=== PATIENT | female | born 1995 | race Caucasian/White ===

== ENCOUNTER 2021-09-07 09:48 | Outpatient (CLI) | payer OTHER, SELFPAY ==
[2021-09-07 11:01] LABS: Hematocrit 33.4 % (37.0-47.0); Hemoglobin 11.4 g/dL (12.0-15.0)
[2021-09-07 11:11] LABS: Glucose 1 Hour PP 50gm Dose 126 mg/dL
[2021-09-07 11:53] LABS: HIV 1/2 Ab P24 Ag Result Negative (Negative)
== END 2021-09-07 09:49 | disposition home or self-care (01) ==
PROVIDERS: Visit Provider Obstetrics & Gynecology
DX: Z36.89 Encounter for other specified antenatal screening (principal)
CPT/HCPCS: 36415; 82947; 85014; 85018; 85461; 86703; G0432

== ENCOUNTER 2021-09-13 12:32 | Outpatient (RCR) | payer OTHER, SELFPAY ==
[2021-09-15] MEDS: RHO(D) IMMUNE GLOBULIN 300 MCG/2 ML SYRINGE IM (10:58)
== END 2021-12-12 23:59 | disposition home or self-care (01) ==
LOC: ANHLAB 12:32
PROVIDERS: Visit Provider Obstetrics & Gynecology
DX: O36.0130 Maternal care for anti-D [Rh] antibodies, third trimester, not applicable or unspecified (principal); Z3A.00 Weeks of gestation of pregnancy not specified
CPT/HCPCS: 36415; 85461; 90384; 96372; J2790

== ENCOUNTER 2021-10-03 09:20 | Observation (INO) | payer OTHER, SELFPAY ==
[2021-10-03] VITALS (14 sets, daily range): BP systolic 97–121; BP diastolic 45–76; PULSE 94–123; TEMP 36.4; BMI 25.3
--- NOTE | 2021-10-03 10:09 | PC.NURSE ---
0940--Vernon Hernandez CNM on unit. Report re: pt. here for DFM, reactive NST, ctxns noted at 32 week gestation with known anterior placenta and cervical funneling per pt. Strip reviewed and pt's records looked up per Vernon Hernandez CNM, orders received for FFN, gentle VE, and terbutaline if needed.
[2021-10-03] MEDS: TERBUTALINE SULFATE 1 MG/ML VIAL 0.25 MG SUB-Q (10:19)
[2021-10-03 10:40] LABS: Fetal Fibronectin Negative
[2021-10-03] MEDS: BETAMETHASONE SOD PHOS/ACETATE 30 MG/5 ML VIAL 12 MG IM (11:02)
--- NOTE | 2021-10-03 11:25 | PC.NURSE ---
1035--Dr. Mathew on unit, update re: Pt's hx, strip reviewed, orders given by JOSUE Hernandez, VE, and awaiting FFN results. Orders to give betamethasone 12mg IM now and repeat in 24hr, and to call JOSUE Hernandez with FFN results.
--- NOTE | 2021-10-03 11:54 | PC.NURSE ---
1149--Report to Vernon Hernandez CNM re: FFN-, VE, meds given, and pt. continuing to contract. Orders to give nifedipine 10mg PO.
[2021-10-03] MEDS: NIFEdipine 10 MG CAPSULE PO ×2 (11:56→16:46)
--- NOTE | 2021-10-03 12:00 | LDADM ---
This patient, Marianela Paige, was admitted to Labor/Delivery/Recovery 118 on 10/03/21 at 09:20. Plans for labor, pain management and were discussed with patient. Patient/family oriented to hospital policies and general routines including ID bracelet, bed and alarms, visiting hours, pain management, procedures, bathroom and other care routines, personal items, smoking policy, room service/diet and guest tray routines, security routines, and visiting hours. Patient/Family are encouraged to report perceived risks to care and to ask questions if they do not understand what they are told or what they should do. See OBIX for further documentation.
--- NOTE | 2021-10-03 12:05 | OBADM ---
This patient, Marianela Paige, admitted to the OB room Labor/Delivery/Recovery 118 for observation. Patient/family oriented to hospital policies and general routines including ID bracelet, bed and alarms, visiting hours, pain management, procedures, bathroom and other care routines, personal items, smoking policy, room service/diet, and visiting hours. Patient/Family are encouraged to report perceived risks to care and to ask questions if they do not understand what they are told or what they should do.
--- NOTE | 2021-10-03 16:58 | PC.NURSE ---
1530--Report to Vernon Hernandez CNM re: cervix unchanged from earlier exam. Orders to keep pt. overnight with procardia Q6h prn and may have regular diet.
--- NOTE | 2021-10-03 17:01 | PC.NURSE ---
1640--Phone call to Vernon Hernandez CNM re: increased ctxns. Orders to change procardia to q4h PRN.
--- NOTE | 2021-10-03 22:50 | PC.NURSE ---
2234-Domenic SALAS on the phone,update given that pt does not feel any contractions she has. Order received to discontinue toco for the night to allow pt to sleep more comfortable and educate pt to call nurse if she starts feeling cramping or contractions.
[2021-10-04 07:30] VITALS: BP 102/62; PULSE 88; TEMP 36.5
--- NOTE | 2021-10-04 07:31 | PM.IMHP ---
H&P: HPI History of Present Illness Date/Time: 10/04/21 07:31 Chief Complaint: decreased FM Narrative: Marianela is a 26yo G1 admitted yesterday at 32.0 for decreased FM, which has since resolved. However, she was noted to have fairly consistent contractions, which she could feel, though mild, and her cervix was 2cm. At 25w she was noted to have cervical funneling incidentally on US. She received celestone #1 yesterday. FFN was neg. she received 2 doses of nifedipine and none in last 8 hours and notes no contractions this am. normal FM currently. NST reactive. Review of Systems Review of Systems: All systems reviewed & are unremarkable except as noted in HPI and below [facility] Surgical History Surgical History (Updated 12/15/20 @ 13:11 by Leslie Yarbrough CMA) History of hand surgery tendon repair Family History Family History (Updated 12/15/20 @ 13:11 by Leslie Yarbrough CMA) Father Hypertension Grandparent Cancer Social History Social History (Updated 12/15/20 @ 13:12 by Leslie Yarbrough CMA) Smoking status: Former smoker Tobacco type: cigarettes Alcohol intake: current Substance use: never Meds Home Medications and Allergies Home Medications Medication Instructions Recorded Confirmed Type vit no.95-ferrous 1 tablet PO DAILY 10/03/21 10/03/21 History fumarate 28 mg-folic acid 800 mcg tablet () Allergies Allergy/AdvReac Type Severity Reaction Status Date / Time No Known Allergies Allergy Verified 12/15/20 13:10 Vital Signs Vital Signs - 24 hr 10/03/21 10:21 10/03/21 10:30 10/03/21 10:45 Temperature Pulse Rate 94 94 106 H Blood Pressure 119/73 115/69 115/70 10/03/21 11:40 10/03/21 11:45 10/03/21 12:00 Temperature Pulse Rate 114 H 101 H 101 H Blood Pressure 114/73 103/69 114/76 10/03/21 12:15 10/03/21 12:30 10/03/21 12:45 Temperature Pulse Rate 97 121 H 110 H Blood Pressure 107/69 110/67 103/59 L 10/03/21 13:00 10/03/21 13:15 10/03/21 14:01 Temperature Pulse Rate 123 H 117 H 109 H Blood Pressure 121/70 103/63 110/63 10/03/21 17:32 10/03/21 20:10 10/04/21 07:30 Temperature 97.6 F Pulse Rate 100 112 H 88 Blood Pressure 107/65 97/45 L 102/62 Exam Const: General: no acute distress Resp: Effort & Inspection: normal respiratory effort Auscultation: clear to auscultation bilaterally Cardio: Rate: regular rate Rhythm: regular rhythm GI: GI Palp: Yes Soft to palpation Extrem: General: normal to inspection Assessment and Plan Assessment and plan (1) Decreased movement affecting management of mother, antepartum: Code(s): O36.8190 - Decreased movements, unspecified trimester, not applicable or unspecified Status: Acute (2) contractions: Code(s): O47.00 - False labor before 37 completed weeks of gestation, unspecified trimester Status: Acute Plan second celestone today FFN negative, discussed this is very reassuring no cervical change home today with precautions if contractions stay minimal
[2021-10-04] MEDS: BETAMETHASONE SOD PHOS/ACETATE 30 MG/5 ML VIAL 12 MG IM (11:06)
== END 2021-10-04 11:37 | disposition home or self-care (01) ==
LOC: ANHLDR 09:45 → ANHOBPP 13:24
PROVIDERS: Advanced Practice Midwife; Admitting Provider Obstetrics & Gynecology; Visit Provider Obstetrics & Gynecology
DX: O36.8130 Decreased fetal movements, third trimester, not applicable or unspecified (principal); O47.03 False labor before 37 completed weeks of gestation, third trimester; Z3A.32 32 weeks gestation of pregnancy
CPT/HCPCS: 82731; 96372; A9270; G0378; G0379; J0702; J3105

== ENCOUNTER 2021-11-14 19:45 | Observation (INO) | payer OTHER, SELFPAY ==
[2021-11-14 19:45] VITALS: BMI 27.1
--- NOTE | 2021-11-14 21:21 | OBADM ---
This patient, Marianela Paige, admitted to the OB room Labor/Delivery/Recovery 105 for observation. Patient/family oriented to hospital policies and general routines including ID bracelet, bed and alarms, visiting hours, pain management, procedures, bathroom and other care routines, personal items, smoking policy, room service/diet, and visiting hours. Patient/Family are encouraged to report perceived risks to care and to ask questions if they do not understand what they are told or what they should do.
--- NOTE | 2021-12-05 13:09 | PM.OBTRLD ---
OB - Triage/Final Diagnosis Visit Information Comments/Additional reasons for admission: I have assessed the risk for this patient, Marianela Paige, and determined that she would benefit from observation care. Final Diagnosis (1) Amniotic fluid leaking: Code(s): O42.90 - Premature rupture of membranes, unspecified as to length of time between rupture and onset of labor, unspecified weeks of gestation Status: Acute
== END 2021-11-14 21:35 | disposition home or self-care (01) ==
PROVIDERS: Admitting Provider Obstetrics & Gynecology; Visit Provider Obstetrics & Gynecology
DX: O42.913 Preterm premature rupture of membranes, unspecified as to length of time between rupture and onset of labor, third trimester (principal); Z3A.30 30 weeks gestation of pregnancy
CPT/HCPCS: 84112; G0378; G0379

== ENCOUNTER 2021-11-21 16:56 | Inpatient (IN) | payer OTHER, SELFPAY ==
[2021-11-21] VITALS (35 sets, daily range): BP systolic 111–154; BP diastolic 45–133; PULSE 82–130; RESP 16–17; TEMP 36.7–37.1; O2SAT 88–100; BMI 26.7
--- NOTE | 2021-11-21 16:56 | LDADM ---
This patient, Marianela Paige, was admitted to Labor/Delivery/Recovery 105 on 11/21/21 at 16:56. Plans for labor, pain management and were discussed with patient. Patient/family oriented to hospital policies and general routines including ID bracelet, bed and alarms, visiting hours, pain management, procedures, bathroom and other care routines, personal items, smoking policy, room service/diet and guest tray routines, security routines, and visiting hours. Patient/Family are encouraged to report perceived risks to care and to ask questions if they do not understand what they are told or what they should do. See OBIX for further documentation.
--- OUTSIDE RECORDS SUMMARY | 2021-11-21 20:16 | XMS_ITS | Encounter Summary ---
:1995 Author Reason for Visit OB visit Assessment and Plan 1. Routine care Discussion Note: None recorded.Patient educational handouts: No information available. Plan of Care Reminders Provider Appointments Induction 11/23/2021 5:00AM Nancy Rayo MD Lab None recorded. ? ? Referral None recorded. ? ? Procedures None recorded. ? ? Surgeries None recorded. ? ? Imaging None recorded. ? ? Medications Name Start Date ? ? ? Medications Administered None recorded. Vitals Height Weight BMI Blood Pressure 5 ft 5 in 161 lbs 26.8 kg/m2 126/81 mm[Hg] Results Lab Results None recorded. Allergies Code Code System Name Reaction Severity Onset NKDA ? ? ? Problems Name Status Onset Date Source ? Active 05/19/2021 ? RhD Negative Active 05/21/2021 ? Short Cervical Length in Active ? ? Procedures Date Name Performed by ? 10/12/2021 US, Obstetric, Follow-up [place] [address] [place] [address] ([address]) Vaccine List None recorded. Social History Tobacco Smoking Status Unknown If Ever Smoked What type of diet are you following? REGULAR What is the highest grade or level of school you have [id number] 4-0 completed or the highest degree you have received? Are you able to walk? YESWOREST Are you blind or do you have difficulty seeing? N
--- OUTSIDE RECORDS SUMMARY | 2021-11-21 20:16 | XMS_ITS | Encounter Summary ---
:1995 Author Reason for Visit OB visit Assessment and Plan 1. Threatened premature labor - not del ivered Discussion Note: None recorded.Patient educational handouts: No [...] BMI Blood Pressure 5 ft 5 in 153 lbs 25.5 kg/m2 128/80 mm[Hg] Results Lab Results None recorded. Allergies Code Code System Name Reaction Severity Onset NKDA ? ? ? Problems Name Status Onset Date Source ? Active 05/19/2021 ? RhD Negative Active 05/21/2021 ? Short Cervical Length in Active ? ? Procedures Date Name Performed by ? 10/12/2021 US, Obstetric, Follow-up [place] [address] [place] [address] (Work [address]) Vaccine List None recorded. Social History Tobacco Smoking Status Unknown If Ever Smoked What type of diet are you following? REGULAR What is the highest grade or level of school you have [id number] 4-0 completed or the highest degree you have received? Are you able to walk? YESWOREST Are you blind or do you have difficulty seeing? N
--- OUTSIDE RECORDS SUMMARY | 2021-11-21 20:16 | XMS_ITS | Encounter Summary ---
[...] BMI Blood Pressure 5 ft 5 in 152 lbs 25.3 kg/m2 107/69 mm[Hg] Results Lab Results None recorded. Allergies Code Code System Name Reaction Severity Onset NKDA ? ? ? Problems Name Status Onset Date Source ? Active 05/19/2021 ? RhD Negative Active 05/21/2021 ? Short Cervical Length in Active ? ? Procedures Date Name Performed by ? 09/07/2021 US, Obstetric, Follow-up [place] [address] [place] [address] (Work [address]) Vaccine List None recorded. Social History Tobacco Smoking Status Unknown If Ever Smoked What type of diet are you following? REGULAR What is the highest grade or level of school you have [id number] 4-0 completed or the highest degree you have received? Are you able to walk? YESWOREST Are you blind or do you have difficulty seeing? N
--- OUTSIDE RECORDS SUMMARY | 2021-11-21 20:16 | XMS_ITS | Encounter Summary ---
[...] BMI Blood Pressure 5 ft 5 in 159 lbs 26.5 kg/m2 113/74 mm[Hg] Results Lab Results None recorded. Allergies Code Code System Name Reaction Severity Onset NKDA ? ? ? Problems Name Status Onset Date Source ? Active 05/19/2021 ? RhD Negative Active 05/21/2021 ? Short Cervical Length in Active ? ? Procedures Date Name Performed by ? 10/12/2021 US, Obstetric, Follow-up [place] [address] [place] [address] (Work [address]) Vaccine List None recorded. Social History Tobacco Smoking Status Unknown If Ever Smoked What type of diet are you following? REGULAR What is the highest grade or level of school you have [id number] 4-0 completed or the highest degree you have received? Are you able to walk? YESWOREST Are you blind or do you have difficulty seeing? N
--- OUTSIDE RECORDS SUMMARY | 2021-11-21 20:16 | XMS_ITS | Encounter Summary ---
[...] BMI Blood Pressure 5 ft 5 in 163 lbs 27.1 kg/m2 122/85 mm[Hg] Results Lab Results None recorded. Allergies Code Code System Name Reaction Severity Onset NKDA ? ? ? Problems Name Status Onset Date Source ? Active 05/19/2021 ? RhD Negative Active 05/21/2021 ? Short Cervical Length in Active ? ? Procedures Date Name Performed by ? 10/12/2021 US, Obstetric, Follow-up [place] [address] [place] [address] (Work [address]) Vaccine List None recorded. Social History Tobacco Smoking Status Unknown If Ever Smoked What type of diet are you following? REGULAR Are you able to walk? YESWOREST How much tobacco do you chew? none What is your level of alcohol consumption? None Have you been to an area known to be high risk for N COV
--- OUTSIDE RECORDS SUMMARY | 2021-11-21 20:16 | XMS_ITS | Encounter Summary ---
:1995 Author Reason for Visit None recorded. Assessment and Plan 1. Large for gestation age fetus ? US, obstetric, follow-up Discussion Note: None recorded.Patient educational handouts: No information available. Plan of Care Reminders Provider Appointments Induction 11/23/2021 Nancy shell MD 5:00AM Lab None recorded. ? ? Referral None recorded. ? ? Procedures None recorded. ? ? Surgeries None recorded. ? ? Imaging US, Obstetric, Follow-up 09/07/2021 Marytony kumar Medications Name Start Date ? ? ? Medications Administered None recorded. Vitals None recorded. Results Lab Results None recorded. Allergies Code Code System Name Reaction Severity Onset NKDA ? ? ? Problems Name Status Onset Date Source ? Active 05/19/2021 ? RhD Negative Active 05/21/2021 ? Short Cervical Length in Active ? ? Procedures Date Name Performed by ? 08/17/2021 US, Obstetric, Transvaginal [place] [address] [place] [address] ([address]) 09/07/2021 US, Obstetric, Follow-up [place] [address] [place] [address] (Work [address]) Vaccine List None recorded. Social History Tobacco Smoking Status Unknown If Ever Smoked What type of diet are you following? REGULAR
--- OUTSIDE RECORDS SUMMARY | 2021-11-21 20:16 | XMS_ITS | Encounter Summary ---
:1995 Author Reason for Visit OB visit Assessment and Plan 1. Routine care 2. Short cervical length in Discussion Note: None recorded.Patient educational handouts: No [...] BMI Blood Pressure 5 ft 5 in 148 lbs 24.6 kg/m2 106/68 mm[Hg] Results Lab Results None recorded. Allergies Code Code System Name Reaction Severity Onset NKDA ? ? ? Problems Name Status Onset Date Source ? Active 05/19/2021 ? RhD Negative Active 05/21/2021 ? Short Cervical Length in Active ? ? Procedures Date Name Performed by ? 08/17/2021 , Obstetric, Transvaginal [place] [address] [place] [address] (Work [address]) 09/07/2021 , Obstetric, Follow-up [place] [address] [place] [address] (Work [address]) Vaccine List None recorded. Social History Tobacco Smoking Status Unknown If Ever Smoked
--- OUTSIDE RECORDS SUMMARY | 2021-11-21 20:16 | XMS_ITS ---
:1995 Author Care Team Providers Name Role Phone Nancy Rayo Primary Care Provider Unavailable Allergies Code Code System Name Reaction Severity Status Onset NKDA ? Medications Name Status Start Date Stop Date ? ? Active ? Not available Problems Name Status Onset Date Source ? Active 05/19/2021 ? RhD Negative Active 05/21/2021 ? Short Cervical Length in Active ? ? Procedures Date Name Performed by ? 05/19/2021 US, Obstetric, Nuchal Translucency Christopher kumar [address] [place] [address] ([address]) 07/13/2021 US, Obstetric, 2Nd or 3Rd Trimester Fatou ribeiro [address] [place] [address] (Work [address]) 07/13/2021 , Obstetric, Transvaginal [place] [address] [place] [address] ([address]) 08/17/2021 , Obstetric, Transvaginal [place] [address] [place] [address] ([address]) 09/07/2021 , Obstetric, Follow-up [place] [address] [place] [address] (Work [address]) 10/12/2021 , Obstetric, Follow-up [place]
--- OUTSIDE RECORDS SUMMARY | 2021-11-21 20:16 | XMS_ITS | Encounter Summary ---
[...] recorded. ? ? Imaging US, Obstetric, Follow-up 10/12/2021 Christopher kumar Medications Name Start Date ? ? [...] Performed by ? 10/12/2021 US, Obstetric, Follow-up [place] [address] [place] [address] ([address]) Vaccine List None recorded. Social History Tobacco Smoking Status Unknown If Ever Smoked What type of diet are you following? REGULAR What is the highest grade or level of school you have [id number] 4-0 completed or the highest degree you have received? Are you able to walk? YESWOREST Are you blind or do you have difficulty seeing? N
[2021-11-21] MEDS: LACTATED RINGERS 1,000 ML 125 ML IV CONT ×2 (21:27→22:55)
[2021-11-21] MEDS: AMPICILLIN 2 GM/NS 100 ML 2 GM/100 ML BAG IVPB (21:27)
[2021-11-21 21:40] LABS: Basophils Absolute Auto 0.1 K/mm3 (0.0-0.1); Basophils Percent Auto 0.3 % (0.2-1.2); Eosinophils Absolute Auto 0.1 K/mm3 (0-0.3); Eosinophils Percent Auto 0.3 % (0-4.4); Hematocrit 35.7 % (37.0-47.0); Hemoglobin 11.8 g/dL (12.0-15.0); Immature Granulocyte Absolute 0.14 K/mm3 (0.00-0.031); Immature Granulocyte Percent A 0.8 % (0-0.5); Lymphocytes Absolute Auto 1.96 K/mm3 (0.9-3.2); Lymphocytes Percent Auto 11.8 % (18.3-44.2); Mean Corpuscular HGB Conc 33.1 g/dl (32-36); Mean Corpuscular Hemoglobin 28.1 pg (26-34); Mean Platelet Volume 11.2 fl (7.4-10.4); Monocytes Percent Auto 6.1 % (2.6-8.5); Neutrophils Absolute Auto 13.4 K/mm3 (1.3-6.7); Neutrophils Percent Auto 80.7 % (45.5-73.1); Platelet Count Result 176 k/mm3 (150-375); Red Cell Distribution Width 12.6 % (11.5-14.5); White Blood Count 16.6 K/mm3 (4.5-10.0)
--- NOTE | 2021-11-21 22:37 | P.PNAN_ITS ---
Anes - Eval Pre Procedure Procedure: labor epidural Date/Time: 11/21/21 22:37 Surgeon: alcides Preop Diagnosis: pain during labor Pre Op Diagnosis: contractions Patient Data Age: 26 Gender: F Height: 1.65 m Weight: 73 kg Last Vital Signs Temp 37.1 C 11/21/21 20:18 Pulse 98 11/21/21 21:46 Resp 16 11/21/21 20:18 BP 135/82 11/21/21 21:46 O2 Del Method Room Air 11/21/21 21:22 Allergies Allergy/AdvReac Type Severity Reaction Status Date / Time No Known Allergies Allergy Verified 11/21/21 21:18 Home Medications Medication Instructions Recorded Confirmed Type vit no.95-ferrous 1 tablet PO DAILY 10/03/21 11/21/21 History fumarate 28 mg-folic acid 800 mcg tablet () Laboratory Tests 11/21/21 11/21/21 21:25 21:25 WBC 16.6 K/mm3 H K/mm3 (4.5-10.0) RBC 4.20 M/mm3 M/mm3 (4.2-5.4) Hgb 11.8 g/dL L g/dL (12.0-15.0) Hct 35.7 % L % (37.0-47.0) MCV 85.0 fl fl (80-100) MCH 28.1 pg pg (26-34) MCHC 33.1 g/dl g/dl (32-36) RDW 12.6 % % (11.5-14.5) Plt Count 176 k/mm3 k/mm3 (150-375) MPV 11.2 fl H fl (7.4-10.4) Immature Gran % (Auto) 0.8 % H % (0-0.5) Neut % (Auto) 80.7 % H % (45.5-73.1) Lymph % (Auto) 11.8 % L % (18.3-44.2) [place] % (Auto) 6.1 % % (2.6-8.5) Eos % (Auto) 0.3 % % (0-4.4) Baso % (Auto) 0.3 % % (0.2-1.2) Lymph # (Auto) 1.96 K/mm3 K/mm3 (0.9-3.2) [place] # (Auto) 1.0 K/mm3 H K/mm3 (0.1-0.6) Eos # (Auto) 0.1 K/mm3 K/mm3 (0-0.3) Baso # (Auto) 0.1 K/mm3 K/mm3 (0.0-0.1) Abs Immat Gran (auto) 0.14 K/mm3 H K/mm3 (0.00-0.031) Absolute Neuts (auto) 13.4 K/mm3 H K/mm3 (1.3-6.7) Absolute Nucleated RBC 0.0 K/mm3 K/mm3 (0.0-0.012) Nucleated RBC % 0.0 % % (0.0-0.2) RPR Pending Patient hx anesthesia problems: none Family hx anesthesia problems: none Results Review: All pre-operative results and documents have been reviewed as part of the pre- operative evaluation. [facility] Past Medical History Medical History (Updated 11/21/21 @ 22:38 by Lilliam Vincent CRNA) IUP (intrauterine ), incidental Surgical History Surgical History (Updated 12/15/20 @ 13:11 by Leslie Yarbrough CMA) History of hand surgery tendon repair Family History Family History Father Hypertension Grandparent Cancer Social History Social History (Updated 12/15/20 @ 13:12 by Leslie Yarbrough CMA) Smoking status: Never smoker Tobacco type: cigarettes Alcohol intake: current Substance use: never Spiritual care concerns: No Exam Day of Procedure 11/21/21 22:37
[2021-11-22] VITALS (139 sets, daily range): BP systolic 106–139; BP diastolic 64–103; PULSE 72–140; RESP 15–18; TEMP 36.4–38.1; O2SAT 94–100
[2021-11-22] MEDS: OXYTOCIN 30 UNITS/NS 500 ML 30 UNITS/500 ML BAG IV CONT
[2021-11-22] MEDS: AMPICILLIN 1 GM/NS 50 ML 1 GM/50 ML BAG IVPB ×3 (01:38→09:49)
[2021-11-22] MEDS: ONDANSETRON INJ 4 MG/2 ML VIAL IV PUSH (02:42)
--- NOTE | 2021-11-22 04:57 | PM.IMHP ---
H&P: HPI History of Present Illness Date/Time: 11/22/21 04:57 Chief Complaint: labor Narrative: Marianela is a 26yo G1 at 39.1 who presented in labor last night with ctx q 2-3 min. Also had a slow leak of fluid since yesterday. Now has epidural, 6cm, bulging forebag. complicated only by shortened cervical length incidentally found around 24w. Review of Systems Review of Systems: All systems reviewed & are unremarkable except as noted in HPI and below PMFSH Past Medical History Medical History (Updated 11/22/21 @ 04:59 by Nancy Rayo MD) IUP (intrauterine ), incidental Surgical History Surgical History (Updated 12/15/20 @ 13:11 by Leslie Yarbrough CMA) History of hand surgery tendon repair Family History Family History Father Hypertension Grandparent Cancer Social History Social History (Updated 12/15/20 @ 13:12 by Leslie Yarbrough [employer]) Smoking status: Never smoker Tobacco type: cigarettes Alcohol intake: current Substance use: never Spiritual care concerns: No Meds Home Medications and Allergies Home Medications Medication Instructions Recorded Confirmed Type vit no.95-ferrous 1 tablet PO DAILY 10/03/21 11/21/21 History fumarate 28 mg-folic acid 800 mcg tablet () Allergies Allergy/AdvReac Type Severity Reaction Status Date / Time No Known Allergies Allergy Verified 11/21/21 21:18 Vital Signs Vital Signs - 24 hr 11/21/21 21:22 11/21/21 21:34 11/21/21 21:46 Temperature Pulse Rate 98 Respiratory Rate Blood Pressure 154/133 H 135/82 Pulse Oximetry Oxygen Delivery Room Air 11/21/21 19:16 11/21/21 20:18 11/21/21 22:41 Temperature 98.6 F 98.7 F Pulse Rate 116 H Respiratory Rate 17 16 Blood Pressure 136/93 H Pulse Oximetry 100 Oxygen Delivery 11/21/21 22:46 11/21/21 22:48 11/21/21 22:51 Temperature Pulse Rate 107 H Respiratory Rate Blood Pressure 135/90 Pulse Oximetry 100 100 Oxygen Delivery 11/21/21 22:53 11/21/21 22:54 11/21/21 22:56 Temperature Pulse Rate 98 102 H 103 H Respiratory Rate Blood Pressure 133/85 126/86 132/84 Pulse Oximetry 100 Oxygen Delivery 11/21/21 22:57 11/21/21 23:00 11/21/21 23:01 Temperature 98.6 F Pulse Rate 97 101 H Respiratory Rate 17 Blood Pressure 129/66 133/77 Pulse Oximetry 99 Oxygen Delivery 11/21/21 23:04 11/21/21 23:06 11/21/21 23:09 Temperature Pulse Rate 130 H 101 H 91 Respiratory Rate Blood Pressure 118/45 L 123/79 111/76 Pulse Oximetry 98 Oxygen Delivery 11/21/21 23:11 11/21/21 23:12 11/21/21 23:15 Temperature Pulse Rate 96 87 Respiratory Rate Blood Pressure 115/72 121/77 Pulse Oximetry 100 Oxygen Delivery 11/21/21 23:16 11/21/21 23:18 11/21/21 23:21 Temperature Pulse Rate 87 86 Respiratory Rate Blood Pressure 123/87 125/81 Pulse Oximetry 98 100 Oxygen Delivery 11/21/21 23:24 11/21/21 23:26 11/21/21 23:27 Temperature Pulse Rate 87 87 Respiratory Rate Blood Pressure 128/77 128/83 Pulse Oximetry 100 Oxygen Delivery 11/21/21 23:30 11/21/21 23:31 11/21/21 23:33 Temperature Pulse Rate 88 87 Respiratory Rate Blood Pressure 128/85 127/89 Pulse Oximetry 100 Oxygen Delivery 11/21/21 23:36 11/21/21 23:39 11/21/21 23:41 Temperature Pulse Rate 92 86 Respiratory Rate Blood Pressure 127/87 130/84 Pulse Oximetry 100 100 Oxygen Delivery 11/21/21 23:42 11/21/21 23:46 11/22/21 00:00 Temperature 97.9 F Pulse Rate 86 89 Respiratory Rate Blood Pressure 128/81 132/88 Pulse Oximetry 88 L Oxygen Delivery 11/22/21 00:31 11/22/21 01:00 11/22/21 01:30 Temperature Pulse Rate 92 93 92 Respiratory Rate Blood Pressure 133/87 116/71 114/75 Pulse Oximetry Oxygen Delivery 11/21/21 21:48 0
[2021-11-22] MEDS: LACTATED RINGERS 1,000 ML 125 ML IV CONT (07:19)
[2021-11-22 07:53] LABS: Rapid Plasma Reagin Non-Reactive (NonReactive)
--- NOTE | 2021-11-22 13:29 | PM.OBPRVD ---
OB - Delivery Note Procedure Delivery date: 11/22/21 Procedure: Delivery augmentation: Rupture of Membranes Delivery monitor: External FHT and Internal Uterine Route of delivery: Laceration Description: Perineal - 2nd Degree Delivery repair: vicryl Quantitative Blood Loss (ml): 1,200 Anesthesia type: Epidural Disposition: Floor Complications: retained placenta with manual extraction at 29 minutes due to excessive bleeding. Narrative: With adequate expulsive efforts by the mother, the baby's head was delivered OA. The baby's anterior shoulder was delivered under the pubic symphysis without difficulty. The posterior shoulder and the rest of the baby delivered without difficulty. The was placed on the mothers chest and suctioned and stimulated. The cord was clamped and cut after 60 seconds. Mother and baby both stable. Baby Date of : 11/22/21 Time of : 12:51 Weeks of gestation at delivery: 39 Infant gender: Male Weight (pounds): 9 Weight (ounces): 12 presentation: vertex Placenta delivery description: Manual Removal Cord Vessel Description: 3 Vessels and Delayed Cord Clamping score one minute: 5 score five minutes: 9
[2021-11-22] MEDS: OXYTOCIN 30 UNITS/NS 500 ML 30 UNITS/500 ML BAG 125 UNITS IV CONT (13:57)
[2021-11-22] MEDS: ceFAZolin 2 GM/D5W 50 ML 2 GM/50 ML BAG IVPB (14:29)
[2021-11-22 15:09] LABS: Hematocrit 25.3 % (37.0-47.0); Hemoglobin 8.5 g/dL (12.0-15.0)
[2021-11-22] MEDS: POLYSACCHARIDE IRON COMPLEX 150 MG CAPSULE PO (16:46)
[2021-11-22] MEDS: DOCUSATE SODIUM 100 MG CAPSULE PO (16:47)
[2021-11-22] MEDS: LANOLIN (LANSINOH) 7.5 GM CREAM 1 APPLIC TOPICAL (16:47)
[2021-11-22] MEDS: IBUPROFEN 600 MG TABLET PO (17:09)
[2021-11-23 00:10] VITALS: BP 100/59; PULSE 99; RESP 18; TEMP 36.4
[2021-11-23 04:15] VITALS: BP 101/63; PULSE 89; RESP 16; TEMP 36.4
[2021-11-23 05:32] LABS: Hematocrit 24.4 % (37.0-47.0); Hemoglobin 7.9 g/dL (12.0-15.0)
--- NOTE | 2021-11-23 08:03 | PM.OBPNVD ---
OB - PN: Subj Subjective Date/time seen: 11/23/21 08:03 Patient comments: no complaints and pain well controlled baby status: nursing well [place] feeding status: exclusively breast feeding Narrative: Denies dizzines, headaches, no tachycardia. Feels well. Tolerated IV iron well yesterday. OB - PN: Obj Data Labs CBC & Chem 7: 11/23/21 04:20 Labs: Laboratory Results - last 24 hr 11/22/21 11/23/21 11/23/21 14:57 04:20 04:20 Hgb 8.5 L D 7.9 L Hct 25.3 L 24.4 L Blood Type A Negative Antibody Screen TNP Screen Negative Baby's Blood Type A pos Baby's ANJEL Positive Doses of RhIg Required 1 OB - PN A/P Plan day: 1 Plan: routine care Comments: anemia- asymptomatic. will repeat IV iron today. does not seem to need blood. doing well. circumcision done after consented. Time Spent With Patient Time: Total time spent is greater than 50% in coordination of care (as documented) at patient's floor/unit and/or counseling patient: Time with patient: less than 15 minutes Exam Narrative: NAD abdomen soft, nontender, fundus firm below the umbilicus Extremities nontender, 1+ edema
[2021-11-23] MEDS: MULTIVIT/MIN/PREN/FOL AC/IRON TABLET 1 TAB PO (08:52)
[2021-11-23] MEDS: IBUPROFEN 600 MG TABLET PO ×2 (08:53→15:59)
[2021-11-23] MEDS: POLYSACCHARIDE IRON COMPLEX 150 MG CAPSULE PO ×2 (08:53→16:00)
[2021-11-23] MEDS: DOCUSATE SODIUM 100 MG CAPSULE PO ×2 (08:55→16:00)
--- NOTE | 2021-11-23 10:24 | WPDANLDPN2 ---
Anes-Prog Note L&D Date/Time: 11/23/21 10:24 Comfortable throughout: labor and delivery Neuraxial method: epidural Epidural/Spinal procedure site: clean & non-tender Neuro status: Neuro function grossly intact. Cardiovascular status: normal Respiratory status: normal Airway patency: baseline Mental status: baseline Post-Op hydration status: normal Vital Signs: Last Vital Signs Temp 36.4 C L 11/23/21 04:15 Pulse 89 11/23/21 04:15 Resp 16 11/23/21 04:15 BP 101/63 11/23/21 04:15 Pulse Ox 100 11/22/21 16:30 O2 Del Method Room Air 11/23/21 08:56 Pain score (VAS): 2 I/O: Intake & Output 11/22/21 11/23/21 11/23/21 23:59 07:59 15:59 Intake Total 515 Balance 515 Patient feedback: Patient satisfied with anesthetic care.
[2021-11-23 12:35] VITALS: BP 111/70; PULSE 94; RESP 16; TEMP 36.2; O2SAT 100
[2021-11-23] MEDS: RHO(D) IMMUNE GLOBULIN 300 MCG/2 ML SYRINGE IM (14:18)
--- NOTE | 2021-11-23 15:05 | PC.NURSE ---
[id number] Introductions were made, then consulted with patient to assess needs related to . Mother led the conversation with her?plans to feed?her infant and the?experience so far. Resources provided for inpatient and outpatient services using a resource guide and mom/baby guide. Mother voiced understanding of information and requests assistance for this feeding. Mother works well with her infant with encouragement and education. Encouraged understanding of the benefits of skin to skin (unwrapping and placing vertically on her chest), responsive feeding and how to watch for early feeding signs, frequency of feeding on demand about every 8-12 times in 24 hours (every 2-3 hours), milk production, duration of feeding, signs of adequate intake/output and how to record on the feeding sheet. Reviewed positioning and ear, shoulder, hip alignment, supporting the breast, asymmetrical latch (off-center), and leading with the chin with a big open side gape. latched to the left breast in cross cradle position. RN suggested positioning infant closer to her body and alignment with a deeper latch as reviewed earlier. After latch optimally father of baby was given ideas of how to support mother's effective latch to keep the close to her body related to clicking heard when mother inadvertently had allowed her infant to fall away from the breast. Education given to mother of how to visualize suck/swallow ratios and listening for drinking at the breast. Infant was able to maintain latch without discomfort to mother. Nipple care reviewed with optimal latch and good positioning. Resources used to facilitate learning were used with the visual handouts and tool. Mother voiced understanding of responsive feedings, stimulating with skin to skin, hand expressed colostrum, massage touch, talking to to encourage if it has been 2 -3 hours since the start of the last , to call if does not latch or there is discomfort with . Reported to the primary RN.
[2021-11-23 21:00] VITALS: BP 110/68; PULSE 101; RESP 18; TEMP 36.6
--- NOTE | 2021-11-24 07:32 | PM.OBPNVD ---
OB - PN: Subj Subjective Date/time seen: 11/24/21 07:32 Patient comments: no complaints and pain well controlled baby status: doing well and nursing well [place] feeding status: exclusively breast feeding OB - PN: Obj Data Labs CBC & Chem 7: 11/23/21 04:20 Labs: Laboratory Results - last 24 hr 11/23/21 04:20 Blood Type A Negative Antibody Screen TNP Screen Negative Baby's Blood Type A pos Baby's ANJEL Positive Doses of RhIg Required 1 OB - PN A/P Plan day: 2 Plan: routine care and discharge home Time Spent With Patient Time: Total time spent is greater than 50% in coordination of care (as documented) at patient's floor/unit and/or counseling patient: Time with patient: less than 15 minutes Exam Narrative: NAD abdomen soft, nontender, fundus firm below the umbilicus Extremities nontender, 1+ edema
--- NOTE | 2021-11-24 07:34 | PM.OBDSVD ---
DS: Admitting Diagnosis Discharge Date 11/24/21 Admitting Diagnosis term , labor DS: Discharge Diagnosis Discharge Diagnosis (1) , delivered: Code(s): O80 - Encounter for full-term uncomplicated delivery Status: Acute OB - DS: Summary Hospital Course Hospital Course: Marianela was admitted in labor and had an uncomplicated vaginal delivery. She had a hemorrhage and received IV iron but otherwise had an uncomplicated course. OB Procedures : Ultrasound OB Procedures Intrapartum: Spontaneous Vag Delivery OB Procedures: : None Peripartum Data Infant Delivery Method: Natural Vaginal Laceration Description: Perineal - 2nd Degree Status at Discharge Functional status at discharge: independent ambulation Time Spent with Patient Time attestation: Total time spent providing and/or coordinating discharge services: Exam Narrative: NAD abdomen soft, appropriately tender Ext non tender, 1+ edema DS: Data Data Completed and Pending Labs on day of discharge: Labs from last 24 hours 11/23/21 04:20 Blood Type A Negative Antibody Screen TNP Screen Negative Baby's Blood Type A pos Baby's ANJEL Positive Doses of RhIg Required 1 Discharge Plan Discharge Attending physician on discharge: Nancy Rayo Discharging Clinician: Nancy Rayo Anticipated Discharge Date/Time: 11/24/21 07:33 Patient Disposition: Home, Self-Care Activity: pelvic rest Diet: regular Patient Instructions: Antibiotic Form Stand Alone Forms: General Discharge Information Follow-up/Referrals: Nancy Rayo MD [Physician] - 4 Weeks Discharge Medications: Continued PNV cmb#95-ferrous fumarate-FA [] 28 mg iron- 800 mcg Tablet 1 tablet PO DAILY Date of admission: 11/21/21 16:56 Primary Care Provider: UNKNOWN,DOCTOR Admitting Provider: Nancy Rayo Attending physician on admission: Nancy Rayo Condition: Stable
[2021-11-24 07:50] VITALS: BP 111/64; PULSE 98; RESP 18; TEMP 36.8; O2SAT 100
[2021-11-24] MEDS: IBUPROFEN 600 MG TABLET PO (09:32)
[2021-11-24] MEDS: DOCUSATE SODIUM 100 MG CAPSULE PO (09:33)
[2021-11-24] MEDS: MULTIVIT/MIN/PREN/FOL AC/IRON TABLET 1 TAB PO (09:33)
[2021-11-24] MEDS: POLYSACCHARIDE IRON COMPLEX 150 MG CAPSULE PO (09:33)
[2021-11-24 10:46] LABS: HIV 1/2 Ab P24 Ag Result Negative (Negative)
--- NOTE | 2021-11-24 17:33 | PC.NURSE ---
[id number] Introductions were made, then consulted with patient to assess needs related to . Mother led the conversation with her?plans to feed?her infant and the?experience so far. Resources provided for inpatient and outpatient services using a resource guide and mom/baby guide. Mother voiced understanding of information and requests assistance. Mother led the conversation with her experience and plan to feed her so far and Mother latches to her right breast. RN encouraged mother to bring her 's body closer to hers with chin buried in the breast with an off-centered latch. Mother states the latch feels better. Reminded parents to use good handwashing technique to prevent infection. Mother is feeding appropriately for growth of and understands stimulating to eat if needed. has had appropriate feedings in the last 24 hours meets the outcomes for weight, output and jaundice at this time. Mother states she is confident to continue effectively her at home or when to call for assistance and denies any additional assistance or education at this time. Reinforced understanding of milk production, transition of milk, signs of adequate intake, prevention/relief of engorgement, responsive after visualizing feeding cues, the different methods of stimulating infant to breastfeed 2-3 hours after the start of the last feeding, community resources, medication information reviewed per [facility] and when to call a provider using the resource of the mom and baby guide/[facility] website. Mother voiced understanding of the education shared. Reported to the primary RN.
--- NOTE | 2021-11-24 20:06 | PC.NURSE ---
1200 Patient viewed the discharge video Mother & Baby Care, The First Two Weeks . Patient was given the opportunity and encouraged to ask questions. Patient verbalized understanding of information shared and has been given the mother/baby guide for home reference.
[2021-11-25 09:06] VITALS: BP 118/82; PULSE 93; RESP 20; TEMP 37; O2SAT 99
== END 2021-11-24 14:13 | disposition home or self-care (01) | DRG 806 ==
LOC: ANHLDR 20:15 → ANHOB2 11-22 16:42
PROVIDERS: Admitting Provider Obstetrics & Gynecology; Visit Provider Obstetrics & Gynecology
DX: O42.92 Full-term premature rupture of membranes, unspecified as to length of time between rupture and onset of labor (principal); O72.2 Delayed and secondary postpartum hemorrhage; Z37.0 Single live birth; O70.1 Second degree perineal laceration during delivery; Z3A.39 39 weeks gestation of pregnancy
CPT/HCPCS: 36415; 84112; 85014; 85018; 85025; 85461; 86592; 86703; 86850; 86880; 86900; 86901; 90384; A9270; G0432; J0290; J0690; J1756; J2405; J2590; J2790; J2795; J7120

== ENCOUNTER 2022-12-29 10:03 | Outpatient (RCR) | payer BC, SELFPAY ==
[2022-12-29] MEDS: RHO(D) IMMUNE GLOBULIN 300 MCG/2 ML SYRINGE IM (15:13)
== END 2023-03-29 23:59 | disposition home or self-care (01) ==
LOC: ANHLAB 10:03
PROVIDERS: Visit Provider Obstetrics & Gynecology
DX: Z29.13 Encounter for prophylactic Rho(D) immune globulin (principal); O36.0130 Maternal care for anti-D [Rh] antibodies, third trimester, not applicable or unspecified; Z3A.00 Weeks of gestation of pregnancy not specified
CPT/HCPCS: 36415; 84702; 85461; 86850; 86900; 86901; 90384; 96372; J2790

== ENCOUNTER 2022-12-30 12:35 | Outpatient (CLI) | payer BC, SELFPAY | END 2022-12-30 12:36 | disposition home or self-care (01) | LOC: ANHLAB 12:36 | PROVIDERS: Visit Provider Obstetrics & Gynecology | DX: O20.0 Threatened abortion (principal); Z3A.00 Weeks of gestation of pregnancy not specified | CPT/HCPCS: 36415; 84702 ==

== ENCOUNTER 2023-02-28 12:25 | Outpatient (CLI) | payer BC, SELFPAY ==
[2023-02-28 13:31] LABS: Beta HCG Quantitative 313.14 mIU/ML
== END 2023-02-28 12:26 | disposition home or self-care (01) ==
PROVIDERS: Visit Provider Advanced Practice Midwife
DX: N91.2 Amenorrhea, unspecified (principal)
CPT/HCPCS: 36415; 84702

== ENCOUNTER 2023-03-02 11:34 | Outpatient (CLI) | payer BC, SELFPAY | END 2023-03-02 11:35 | disposition home or self-care (01) | LOC: ANHLAB 11:36 | PROVIDERS: Visit Provider Advanced Practice Midwife | DX: N91.2 Amenorrhea, unspecified (principal) | CPT/HCPCS: 36415; 84702 ==

== ENCOUNTER 2023-04-18 14:36 | Outpatient (RCR) | payer BC, SELFPAY ==
[2023-04-18] MEDS: RHO(D) IMMUNE GLOBULIN 300 MCG/2 ML SYRINGE IM (18:27)
== END 2023-07-17 23:59 | disposition home or self-care (01) ==
LOC: ANHLAB 14:36
PROVIDERS: Visit Provider Advanced Practice Midwife
DX: Z29.13 Encounter for prophylactic Rho(D) immune globulin (principal); O36.0130 Maternal care for anti-D [Rh] antibodies, third trimester, not applicable or unspecified; Z3A.00 Weeks of gestation of pregnancy not specified
CPT/HCPCS: 36415; 85461; 86850; 86880; 86900; 86901; 86902; 90384; 96372; J2790

== ENCOUNTER 2023-08-22 09:30 | Outpatient (RCR) | payer BC, SELFPAY ==
[2023-08-22 11:01] LABS: Hematocrit 32.8 % (37.0-47.0)
[2023-08-22 11:15] LABS: Glucose 1 Hour PP 50gm Dose 146 mg/dL
[2023-08-22 11:55] LABS: HIV 1/2 Ab P24 Ag Result Negative (Negative)
[2023-08-23] MEDS: RHO(D) IMMUNE GLOBULIN 300 MCG/2 ML SYRINGE IM (10:20)
== END 2023-11-20 23:59 | disposition home or self-care (01) ==
LOC: ANHLAB 09:30
PROVIDERS: Visit Provider Advanced Practice Midwife
DX: Z11.4 Encounter for screening for human immunodeficiency virus [HIV] (principal); Z11.3 Encounter for screening for infections with a predominantly sexual mode of transmission; Z29.13 Encounter for prophylactic Rho(D) immune globulin; O36.0190 Maternal care for anti-D [Rh] antibodies, unspecified trimester, not applicable or unspecified; Z3A.00 Weeks of gestation of pregnancy not specified
CPT/HCPCS: 36415; 82947; 85014; 85018; 85461; 86703; 86850; 86900; 86901; 90384; 96372; G0432; J2790

== ENCOUNTER 2023-10-27 00:01 | Inpatient (IN) | payer BC, SELFPAY ==
[2023-10-27] VITALS (105 sets, daily range): BP systolic 64–142; BP diastolic 44–121; PULSE 25–201; RESP 16–18; TEMP 36.3–37.2; O2SAT 76–100; BMI 28.3
--- NOTE | 2023-10-27 00:34 | LDADM ---
This patient, Marianela Pierson, was admitted to Labor/Delivery/Recovery 103 on 10/27/23 at 00:01. Plans for labor, pain management and were discussed with patient. Patient/family oriented to hospital policies and general routines including ID bracelet, bed and alarms, visiting hours, pain management, procedures, bathroom and other care routines, personal items, smoking policy, room service/diet and guest tray routines, security routines, and visiting hours. Patient/Family are encouraged to report perceived risks to care and to ask questions if they do not understand what they are told or what they should do. See [facility] for further documentation.
[2023-10-27 00:57] LABS: Basophils Percent Auto 0.3 % (0.2-1.2); Eosinophils Absolute Auto 0.1 K/mm3 (0-0.3); Eosinophils Percent Auto 1.2 % (0-4.4); Hematocrit 32.5 % (37.0-47.0); Hemoglobin 10.5 g/dL (12.0-15.0); Immature Granulocyte Absolute 0.11 K/mm3 (0.00-0.031); Immature Granulocyte Percent A 0.9 % (0-0.5); Lymphocytes Absolute Auto 2.11 K/mm3 (0.9-3.2); Lymphocytes Percent Auto 17.9 % (18.3-44.2); Mean Corpuscular HGB Conc 32.3 g/dl (32-36); Mean Corpuscular Hemoglobin 25.1 pg (26-34); Mean Corpuscular Volume 77.8 fl (80-100); Mean Platelet Volume 10.1 fl (7.4-10.4); Monocytes Absolute Auto 0.8 K/mm3 (0.1-0.6); Monocytes Percent Auto 6.8 % (2.6-8.5); Neutrophils Absolute Auto 8.6 K/mm3 (1.3-6.7); Neutrophils Percent Auto 72.9 % (45.5-73.1); Platelet Count Result 172 k/mm3 (150-375); Red Blood Count 4.18 M/mm3 (4.2-5.4); Red Cell Distribution Width 13.2 % (11.5-14.5); White Blood Count 11.8 K/mm3 (4.5-10.0)
[2023-10-27 01:05] LABS: Rapid Plasma Reagin Non-Reactive (NonReactive)
[2023-10-27] MEDS: LACTATED RINGERS 1,000 ML 125 ML IV CONT ×2 (01:18→05:51)
[2023-10-27] MEDS: OXYTOCIN 30 UNITS/NS 500 ML 30 UNITS/500 ML BAG IV CONT (01:18)
[2023-10-27 01:38] LABS: HIV 1/2 Ab P24 Ag Result Negative (Negative)
--- NOTE | 2023-10-27 05:51 | WPDANESEPP ---
Anes - Eval Pre Procedure Procedure: Labor Epidural Date/Time: 10/27/23 05:51 Surgeon: deanna Preop Diagnosis: labor pain Pre Op Diagnosis: IOL Patient Data Age: 28 Gender: F Height: 1.65 m Weight: 77.2 kg Last Vital Signs Temp 36.8 C 10/27/23 00:30 Pulse 91 10/27/23 05:45 BP 107/75 10/27/23 05:45 O2 Del Method Room Air 10/27/23 00:23 Allergies Allergy/AdvReac Type Severity Reaction Status Date / Time No Known Allergies Allergy Verified 11/21/21 21:18 Home Medications Medication Instructions Recorded Confirmed Type vit no.95-ferrous 1 tablet PO DAILY 10/03/21 10/27/23 History fumarate 28 mg-folic acid 800 mcg tablet () Laboratory Tests 10/27/23 00:10 WBC 11.8 H K/mm3 (4.5-10.0) RBC 4.18 L M/mm3 (4.2-5.4) Hgb 10.5 L g/dL (12.0-15.0) Hct 32.5 L % (37.0-47.0) MCV 77.8 L fl (80-100) MCH 25.1 L pg (26-34) MCHC 32.3 g/dl (32-36) RDW 13.2 % (11.5-14.5) Plt Count 172 k/mm3 (150-375) MPV 10.1 fl (7.4-10.4) Immature Gran % (Auto) 0.9 H % (0-0.5) Neut % (Auto) 72.9 % (45.5-73.1) Lymph % (Auto) 17.9 L % (18.3-44.2) [place] % (Auto) 6.8 % (2.6-8.5) Eos % (Auto) 1.2 % (0-4.4) Baso % (Auto) 0.3 % (0.2-1.2) Lymph # (Auto) 2.11 K/mm3 (0.9-3.2) [place] # (Auto) 0.8 H K/mm3 (0.1-0.6) Eos # (Auto) 0.1 K/mm3 (0-0.3) Baso # (Auto) 0.0 K/mm3 (0.0-0.1) Abs Immat Gran (auto) 0.11 H K/mm3 (0.00-0.031) Absolute Neuts (auto) 8.6 H K/mm3 (1.3-6.7) Absolute Nucleated RBC 0.000 K/mm3 (0.0-0.012) Nucleated RBC % 0.0 % (0.0-0.2) RPR Non-reactive (NonReactive) HIV 1&2 Ab/P24 Ag 4thGn Negative (Negative) Blood Type A Negative Antibody Screen Positive Antibody Identification Passive Due to RH Imm Glob Antigen Identification TNP ANJEL, IgG Interpret Negative ANJEL, Poly Interpret TNP ANJEL, Complement Interp Negative : gestational age (NICK 11/03/23, ) Patient hx anesthesia problems: none Family hx anesthesia problems: none Results Review: All pre-operative results and documents have been reviewed as part of the pre-operative evaluation. [facility] Past Medical History Medical History IUP (intrauterine ), incidental Surgical History Surgical History History of hand surgery tendon repair Family History Family History Father Hypertension Grandparent Cancer Social History Social History Smoking status: Never smoker Tobacco type: cigarettes Second hand tobacco smoke exposure: No Alcohol intake: current Substance use: never Do You Feel Safe in your Home?: Yes Lack of Transportation: No Lack of Food: Never True Current Housing: I Have Housing Concerned About Future Housing: No Difficulty Paying Gas/Electric Bills: No Difficulty Paying for Meds: No Currently Unemployed: No Education: High School Diploma/GED Difficulty w/ Childcare or Family Care: No Spiritual care concerns: No Exam Day of Procedure 10/27/23 05:51 Patient weight: normal Heart: regular rate and rhythm Lungs: normal air movement Airway: Mallampati scale class II Neurological: alert and oriented
--- NOTE | 2023-10-27 07:22 | WPDOBADMIT ---
Obstetrics - Admit Note Admission Note: record reviewed. No pertinent additions to the history and/or any subsequent changes in the physical findings that are not consistent with the expected course of the were found. Additions to the history and/or subsequent changes in the physical findings follow. Admit for IOL, SVE /-1 AROM moderate amount of clear odorless fluid
[2023-10-27] MEDS: PHENYLEPHRINE 1,000 MCG/10 ML SYRINGE 100 MCG IV PUSH (08:50)
[2023-10-27] MEDS: miSOPROStol 200 MCG TABLET 1000 MCG (09:01)
--- NOTE | 2023-10-27 09:08 | P.PCNOB_ITS ---
OB - Vaginal Delivery Note Procedure Delivery date: 10/27/23 Induction method: AROM and Per Pitocin Protocol Delivery monitor: External FHT Route of delivery: Episiotomy description: None Laceration Description: None Specimen: No Quantitative Blood Loss (ml): 100 Anesthesia type: Epidural Disposition: Floor Complications: No immediate complications [place] Baby Date of : 10/27/23 Time of : 08:57 Gestational Age by Date: 39 gender: Male presentation: vertex position: Right Occiput Anterior Placenta delivery description: Spontaneous Cord Vessel Description: 3 Vessels, Nuchal Cord (x1) and Loose Narrative: mother and baby skin to skin in stable condition
[2023-10-27] MEDS: OXYTOCIN 30 UNITS/NS 500 ML 30 UNITS/500 ML BAG 125 UNITS IV CONT (09:38)
--- NOTE | 2023-10-27 13:12 | PC.NURSE ---
Introductions were made, communication board updated. Mother expresses that she feels confident nursing infant and feels that feedings are going well. This RN asked mother to call for next feeding if she has any questions or would like this RN to confirm that infants latch is appropriate. Mother denies any additional questions at this time.
[2023-10-27] MEDS: IBUPROFEN 600 MG TABLET PO (23:23)
[2023-10-28 05:00] LABS: Hematocrit 29.6 % (37.0-47.0); Hemoglobin 9.6 g/dL (12.0-15.0)
[2023-10-28 07:30] VITALS: BP 101/59; PULSE 80; RESP 16; TEMP 36.6; O2SAT 99
--- NOTE | 2023-10-28 08:32 | PM.OBPNVD ---
OB - PN: Subj Subjective Date/time seen: 10/28/23 08:32 Patient comments: no complaints, pain well controlled, incisional pain, tolerating diet and flatus present OB - PN: Obj Data Labs 10/28/23 03:21 Labs: Laboratory Results - last 24 hr 10/28/23 03:21 Hgb 9.6 L Hct 29.6 L OB - PN A/P Plan day: 1 Plan: routine care Comments: No problems, routine care Time Spent With Patient Time: Total time spent is greater than 50% in coordination of care (as documented) at patient's floor/unit and/or counseling patient: Exam Const: General: comfortable, no acute distress and alert Resp: Effort & Inspection: normal respiratory effort Auscultation: no crackles, no rales and no rhonchi Cardio: Rate: regular rate Heart sounds: no click, no murmurs and no rubs GI: Inspection: non-distended GI Palp: No Tenderness to palpation present (GI) Auscultation: normal bowel sounds Other: Incision - CDI Extrem: General: normal to inspection, no pedal edema and no calf tenderness
--- NOTE | 2023-10-28 08:33 | PM.OBDSVD ---
DS: Admitting Diagnosis Discharge Date October 28, 2023 Admitting Diagnosis term DS: Discharge Diagnosis Discharge Diagnosis (1) Post term , delivered: Code(s): O48.0 - Post-term Status: Acute OB - DS: Summary OB Procedures : None OB Procedures Intrapartum: Spontaneous Vag Delivery OB Procedures: : None Peripartum Data Laceration Description: None Episiotomy description: None Time Spent with Patient Time attestation: Total time spent providing and/or coordinating discharge services: DS: Data Data Completed and Pending Labs on day of discharge: Labs from last 24 hours 10/28/23 03:21 Hgb 9.6 L Hct 29.6 L Discharge Plan Discharge Discharging Clinician: Dayton Mathew Patient Disposition: Home, Self-Care Activity: pelvic rest Diet: regular Patient Instructions: Antibiotic Form Stand Alone Forms: General Discharge Information Follow-up/Referrals: Dayton Mathew MD [Physician] - Discharge Medications: Continued PNV cmb#95-ferrous fumarate-FA [] 28 mg iron- 800 mcg Tablet 1 tablet PO DAILY Date of admission: 10/27/23 00:01 Primary Care Provider: Ratna Hernandez Admitting Provider: Dayton Mathew Attending physician on admission: Dayton Mathew Condition: Stable
[2023-10-28] MEDS: DOCUSATE SODIUM 100 MG CAPSULE PO (08:44)
[2023-10-28] MEDS: POLYSACCHARIDE IRON COMPLEX 150 MG CAPSULE PO (08:44)
[2023-10-28] MEDS: MULTIVIT/MIN/PREN/FOL AC/IRON TABLET 1 TAB PO (08:44)
--- NOTE | 2023-10-28 10:26 | WPDANLDPN2 ---
Anes-Prog Note L&D Date/Time: 10/28/23 10:26 Comfortable throughout: labor and delivery Neuraxial method: epidural Epidural/Spinal procedure site: clean & non-tender Neuro status: Neuro function grossly intact. Cardiovascular status: normal Respiratory status: normal Airway patency: baseline Mental status: baseline Post-Op hydration status: normal Vital Signs: Last Vital Signs Temp 97.8 F 10/28/23 07:30 Pulse 80 10/28/23 07:30 Resp 16 10/28/23 07:30 BP 101/59 L 10/28/23 07:30 Pulse Ox 99 10/28/23 07:30 O2 Del Method Room Air 10/28/23 07:30 Pain score (VAS): 0 Post-procedural complaints: none Patient feedback: Patient satisfied with anesthetic care.
--- NOTE | 2023-10-28 12:30 | PC.NURSE ---
Consulted with mother concerning needs and she shared her ability to independently latch infant optimally without pain. Mother is feeding appropriately for growth of and understands stimulating to eat if needed. Infant has had appropriate feedings in the last 24 hours meets the outcomes for weight, output, blood sugar and jaundice at this time. Reinforced understanding of milk production, transition of milk, signs of adequate intake, transition of stool, prevention/relief of engorgement, plugged ducts, mastitis, responsive watching for feeding cues, the different methods of stimulating to breastfeed 1-3 hours after the start of the last feeding, community resources, and when to call a provider using the resource of the feeding sheet along with the mom and baby guide. Mother voiced understanding of the information shared, is confident to continue effectively her infant at home, when to call for assistance, denies any additional assistance or education at this time. Reported to the Primary RN.
[2023-10-30 11:16] VITALS: BP 106/71; PULSE 71; RESP 18; TEMP 36.7; O2SAT 98
== END 2023-10-28 14:50 | disposition home or self-care (01) | DRG 807 ==
LOC: ANHLDR 00:10 → ANHOB2 14:13
PROVIDERS: Admitting Provider Obstetrics & Gynecology; PCP Advanced Practice Midwife; Visit Provider Obstetrics & Gynecology
DX: O62.3 Precipitate labor (principal); Z37.0 Single live birth; Z3A.39 39 weeks gestation of pregnancy; O69.81X0 Labor and delivery complicated by cord around neck, without compression, not applicable or unspecified
CPT/HCPCS: 36415; 85014; 85018; 85025; 86592; 86703; 86850; 86880; 86900; 86901; A9270; G0432; J2371; J2590; J2795; J7120

== ENCOUNTER 2024-10-15 09:29 | Outpatient (RCR) | payer BC, SELFPAY ==
[2024-10-15 11:54] LABS: Hematocrit 30.1 % (37.0-47.0); Hemoglobin 9.7 g/dL (12.0-15.0)
[2024-10-15 12:13] LABS: Glucose 1 Hour PP 50gm Dose 134 mg/dL
[2024-10-15 12:49] LABS: HIV 1/2 Ab P24 Ag Result Negative (Negative)
[2024-10-17] MEDS: RHO(D) IMMUNE GLOBULIN 300 MCG/2 ML SYRINGE IM (19:29)
== END 2025-01-13 23:59 | disposition home or self-care (01) ==
LOC: ANHLAB 09:29
PROVIDERS: Visit Provider Advanced Practice Midwife
DX: Z11.4 Encounter for screening for human immunodeficiency virus [HIV] (principal); Z11.3 Encounter for screening for infections with a predominantly sexual mode of transmission; Z29.13 Encounter for prophylactic Rho(D) immune globulin; O36.0130 Maternal care for anti-D [Rh] antibodies, third trimester, not applicable or unspecified; Z3A.00 Weeks of gestation of pregnancy not specified
CPT/HCPCS: 36415; 82947; 85014; 85018; 85461; 86703; 86850; 86900; 86901; 90384; 96372; G0432; J2790

== ENCOUNTER 2024-12-14 18:06 | Outpatient (CLI) | payer BC, SELFPAY ==
[2024-12-14] VITALS (8 sets, daily range): BP systolic 99–120; BP diastolic 66–74; PULSE 95–134; TEMP 37.2–37.6
[2024-12-14] MEDS: ONDANSETRON HCL ODT 4 MG TABLET (18:35)
== END 2024-12-14 20:35 | disposition home or self-care (01) ==
LOC: ANHOBOP 18:11 → ANHLDR 19:17
PROVIDERS: Visit Provider Obstetrics & Gynecology
DX: Z34.90 Encounter for supervision of normal pregnancy, unspecified, unspecified trimester (principal); Z3A.00 Weeks of gestation of pregnancy not specified
CPT/HCPCS: 84112; 99199; A9270

== ENCOUNTER 2024-12-15 10:46 | Inpatient (IN) | payer BC, SELFPAY ==
[2024-12-15] VITALS (86 sets, daily range): BP systolic 84–127; BP diastolic 46–83; PULSE 25–164; RESP 16–18; TEMP 36.5–37.3; O2SAT 82–100; BMI 23.5
--- OUTSIDE RECORDS SUMMARY | 2024-12-15 11:15 | XMS_ITS | Data Portability ---
Author Organization [facility] Address [address] [place] [place] [address] Assessment Encounter Date Assessment Date Assessment LastModified by Organization Details LastModified Time 11/06/2024 11/06/2024 Patient is __32_weeks . Discussed plan. Not available 11/06/2024 12:24:14 11/20/2024 11/20/2024 Patient is __34_weeks . Discussed plan. [email or web address] Not available 11/20/2024 15:25:25 12/04/2024 12/04/2024 Patient is _36__weeks . Discussed plan. Not available 12/04/2024 10:39:17 12/11/2024 12/11/2024 Patient is __37_weeks . Discussed plan. Not available 12/11/2024 11:42:21 Plan of Treatment Reminders Order Date Submit Date Provider Last Modified By Organization Details Last Modified Time Details Appointments U/S OB GROWTH 2024 08:30A M ULTRASOUND Not available Not available Not available OB ROUTINE 2024 09:15A M Ratna Hernandez CNM Not available Not available Not available INDUCTI ON 2024 05:00A Elieser Hernandez CNM Not available Not available Not available Lab None recorde d. Referral None recorde d. Procedures None recorde d. Surgeries None recorde d. Imaging US, obstetr ic, follow- up 2024 [id number] [email or web address] [address], [address], [place], [address], 11/21/2024 18:25:28 Medication Orders None recorde d. Patient TargetsNo targets recorded. Patient InstructionsNo instructions recorded. Reason for Referral None Reported. Results Created Date Observation Date Name Description Value Unit Range Abnormal Flag Note LastModifiedBy Organization Detail LastModifiedTime 10/24/1910/23/2024 RETIC ULOCY TE COUNT reticulocyte count percent 3.02 % 0.50-2 .50 high Not Available [facility] (Lab) [address], [place], [address], 10/24/2024 07:37:39 10/24/1910/23/2024 RETIC ULOCY TE COUNT reticulocyte count absolute 112.00 10'3/ uL no define d refere nce range Refer ence range s for nonbi nary/ inter sex or unspe cifie d gende r patie nts have not been estab lishe d. Pleas e [facility] for range s estab lishe d for cisge nder patie nts and evalu ate in the clini alejandro marcy xt of the indiv idual patie nt: https ://lianna ahn book. nm.or g/gen derx Not Available [facility] (Lab) [address], [place], [address], 10/24/2024 07:37:39 10/24/1910/23/2024 CECILIA TIN / IRON / TRANS CECILIA N / TIBC iron 42 ug/dL 40-170 Not Available [facility] (Lab) [address] [place], [address], 10/24/2024 07:37:40 10/24/1910/23/2024 CECILIA TIN / IRON / TRANS CECILIA N / TIBC transferrin 405 mg/dL 200-36 0 high Not Available [facility] (Lab) [address] [place], [address], 10/24/2024 07:37:40 10/24/19 25 10/23/2024 CECILIA TIN / IRON / TRANS CECILIA N / TIBC ferritin 6.4 NG/mL 8.0-25 2.0 low Not Available [facility] (Lab) [address] [place], [address], 10/24/2024 07:37:40 10/24/19 25 10/23/2024 CECILIA TIN / IRON / TRANS CECILIA N / TIBC TIBC 567 ug/dL 250-45 0 high Not Available [facility] (Lab) [address] [place], [address], 10/24/2024 07:37:40 10/24/19 25 10/23/2024 CECILIA TIN / IRON / TRANS CECILIA N / TIBC iron saturation 7 % 20-55 low Not Available [facility] (Lab) [address] [place], [address], 10/24/2024 07:37:40 10/24/19 25 10/23/2024 VITAM IN B12 / FOLAT E PANEL vitamin B12 133 pg/mL 180-91 4 low Marge l Range : 180-9 14 pg/mL . Indet ermin ate Range : 145-1 80 pg/mL . Defic ient Range : <=145 pg/mL . Not Available [facility] (Lab) [address] [facility], [place], [address], 10/24/2024 07:37:40 10/24/1910/23/2024 VITAM IN B12 / FOLAT E PANEL folate, serum 13.0 NG/mL 6.0-20 .0 Not Available [facility] (Lab) [address] [place], [address], 10/24/2024 07:37:40 12/05/19 25 12/04/2024 CULTU RE: GROUP B STREP SCREE N, REFLE X SUSCE PTIBI LITY result report SEE RESULT S BELOW Test: Cultu re: Group B Strep , Refle x Susce ptibi lity ([facility]/ [facility] ) Speci men Sourc e: Vagin a/Rec luma Speci men Type: Vagin al/Re ctal Speci men Date: 2024 0918 Resul t Date: 12/07 1405 Resul t Statu s: Final resul t Abnor mal: No Resul ting Lab: [facility] [address] [facility] [address] Tel: CULTU RE ----- ----- ----- --- No Group B strep isola patrice at 2 days (da ctive broth enhan cemen t) Not Available [facility] (Lab) [address] [facility], [place], [address], 12/07/2024 15:09:02 10/24/19 25 10/23/2024 US, obste tric, follo w-up No observ ation record ed. [email or web address] [address], [place], [address], 10/23/2024 13:06:22 10/24/19 25 10/23/2024 US, obste tric, follo w-up No observ ation record ed. [email or web address] [address], [place], [address], 10/25/2024 11:06:25 11/21/19 25 11/20/2024 US, obste tric, follo w-up No observ ation record ed. [email or web address] [address], [place], [address], 11/22/2024 07:08:29 11/21/19 25 11/20/2024 US, obste tric, follo w-up No observ ation record ed. [email or web address] [address], [place], [address], 11/20/2024 18:35:58 Result Notes None recorded. Problems Name Problem SNOMED Code Status Onset Date Resolution Date Notes Provider Name and Address Organization Details Recorded Time Low-lyin g placenta 141521835 Completed 1.8cm Nancy Rayo, MD [address], [place], [address], [place] [facility] 2 10:54:31 Short cervical length in pregnanc y 295462822 Completed with franca porter 25w, incident ally found - Wash U [facility] 08/19/21 - Just PTL precauti ons r/t [place] Renita martinez null, [facility] 2 17:51:47 Prophyla ctic immunoth erapy Completed A-; rhogam received 04/18/23 & 08/23/23 Nieves Ann null, [facility] 4 19:45:09 Past pregnanc y history of postpart um hemorrha ge 056808856 Completed Nieves garcia, [facility] 4 19:45:09 Pregnanc y 02985221 Completed 202112/23/2021 Nieves Ann null, [facility] 5 10:30:38 RhD negative 347310795 Active 2021 Renita martinez null, [facility] 2 17:51:47 RhD negative 537554223 Completed 2021 Renita martinez null, [facility] 2 17:51:47 Pregnanc y 62670892 Completed 202311/03/2023 Nieves Ann null, [facility] 5 10:30:38 Pregnanc y 71399414 Active 2024 Nieves Ann null, [facility] 5 10:30:38 Bleeding 480122131 Active 2024 postpart um after first delivery Ratna Hernandez CNM [address], [place], [address], [facility] 5 09:36:25 Venous de la paz 500344234 Active 2024 Rose garcia, [facility] 5 10:22:06 Placenta previa 67446153 Active 2024 resolved 08/14/24 Ratna Hernandez CNM [address], [place], [address], [facility] 5 12:26:09 Iron deficien cy anemia 10003210 Active 2024 HGB 9.7 Draw anemia panel 10/23 IV iron infusion s - faxed order 10/25 - Insuranc e covers 50% of infusion s - pt decline scheduli ng yet - pending financia l assistan ce per SP [facility] if needed Rose Darryl radha, [facility] 5 09:45:50 Problem Notes None recorded. Procedures Surgical History Date Name Laterality Status Provider Name and Address Organization Details Recorded Time 05/22/2024 Date of Last Pap Smear completed Nieves Ann [facility] 05/22/2024 11:40:52 Imaging Results None recorded. Procedure Notes None recorded. Medical Equipment None Reported. Allergies No known drug allergies Medications Name Sig Start Date Stop Date Status Note LastModified by Organization Details LastModified Time dicloxacilli n 500 mg capsule Take 1 capsule twice a day by oral route for 10 days. 05/22 completed Not Available Not Available Not Available azithromycin 250 mg tablet TAKE 2 TABLETS (500 MG) BY ORAL ROUTE ONCE DAILY FOR 1 DAY THEN 1 TABLET (250 MG) BY ORAL ROUTE ONCE DAILY FOR 4 DAYS 11/20 completed Not Available Not Available Not Available metocloprami de 10 mg tablet TAKE 1 TABLET BY MOUTH FOUR TIMES DAILY 12/12 completed Not Available Not Available Not Available iron 1 daily active Not Available Not Avail able Not Available active Not Available Not Avai lable Not Available Vitals Date Recorded Body height Body mass index (BMI) Body weight Systolic And Diastolic Provider Name and Address Organization Details Last Updated DateTime 11/06/2024 165.1 cm 24.1 kg/m2 89445.89 g 97/61 mm[Hg] [facility] 11/06/2024 12:09:24 Date Recorded Body height Body mass index (BMI) Body weight Systolic And Diastolic Provider Name and Address Organization Details Last Updated DateTime 11/20/2024 165.1 cm 24.3 kg/m2 08614.49 g 106/64 mm[Hg] [facility] 11/20/2024 15:07:35 Date Recorded Body height Body mass index (BMI) Body weight Systolic And Diastolic Provider Name and Address Organization Details Last Updated DateTime 12/04/2024 165.1 cm 24.5 kg/m2 61740.08 g 108/71 mm[Hg] [facility] 12/04/2024 09:35:57 Date Recorded Body height Body mass index (BMI) Body weight Systolic And Diastolic Provider Name and Address Organization Details Last Updated DateTime 12/11/2024 165.1 cm 24.8 kg/m2 34151.26 g 115/74 mm[Hg] [facility] 12/11/2024 10:33:02 Social History Question Answer Notes LastModified by Organizat ion Details LastModified Time Tobacco Smoking Status [facility] 04/26/2023 13:31:17 Do You Have An Advance Directive? No [email or web address] Information n ot available 04/20/2021 Are You Blind Or Do You Have Difficulty Seeing? No [email or web address] Information n ot available 04/20/2021 What Is Your Level Of Caffeine Consumption? Occasional [email or web address] Information not available 04/20/2021 How Much Tobacco Do You Chew? None [email or web address] Information not available 04/20/2021 In The 14 Days Before Symptom Onset, Have You Had Close Contact With A Laboratory-confirm ed COVID-19 While That Case Was Ill? No Information n ot available 04/20/2021 In The 14 Days Before Symptom Onset, Have You Had Close Contact With A Person Who Is Under Investigation For COVID-19 While That Person Was Ill? No [email or web address] Information not available 04/20/2021 Have You Been To An Area Known To Be High Risk For COVID-19? No [email or web address] Information not available 04/20/2021 Are You Deaf Or Do You Have Serious Difficulty Hearing? No Information not available 04/20/2021 What Type Of Diet Are You Following? REGULAR [email or web address] Information n ot available 04/20/2021 What Is The Highest Grade Or Level Of School You Have Completed Or The Highest Degree You Have Received? [id number] [email or web address] Information not available 04/20/2021 Are There Any Guns Present In Your Home? No [email or web address] Information not available 04/20/2021 Do You Use Protection During Sex? No [email or web address] Information not available 04/20/2021 Do You Use Your Seat Belt Or Car Seat Routinely? Yes [email or web address] Information not available 04/20/2021 Are You Sexually Active? Yes Information not available 10/09/2024 Do You Have Smoke And Carbon Monoxide Detectors In Your Home? Yes [email or web address] Information not available 04/20/2021 How Much Tobacco Do You Smoke? No [email or web address] Information not available 04/20/2021 Do You Use Sunscreen Routinely? Yes [email or web address] Information not available 04/20/2021 Has Tobacco Cessation Counseling Been Provided? No [email or web address] Information not available 10/09/2024 Have You Used IV Drugs? No [email or web address] Information not available 04/20/2021 Do You Have Difficulty Walking Or Climbing Stairs? No [email or web address] Information not available 04/26/2023 Sex: Female Functional Status Question Answer Note LastModified by Organizat ion Details LastModified Time Do you use any illicit or recreational drugs? No [email or web address] Information not available 04/20/2021 Do you or have you ever used any other forms of tobacco or nicotine? No [email or web address] Information not available 04/26/2023 What is your level of alcohol consumption? None [email or web address] Information not available 04/20/2021 Are you currently employed? Yes [email or web address] Information not available 10/09/2024 Are you able to walk independently without assistance or assistive devices? YESWOREST [email or web address] Information not available 04/20/2021 Are you able to care for yourself independently? 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 No [email or web address] Information not available 04/26/2023 What is your exercise level? Occasional [email or web address] Information not available 04/20/2021 Mental Status Question Answer Note LastModified by Organization D etails LastModified Time Do you feel stressed (tense, restless, nervous, or anxious, or unable to sleep at night)? [id number] [email or web address] Information not available 04/26/2023 Family History Relationship Description Onset Age of this Age Resolved Age Notes LastModified by Organization Details LastModified Time Paternal Grandmother Malignant neoplasm of breast 70 [email or web address] Not available 2024 12:35:39 Paternal Grandmother Malignant neoplasm of breast Not available 2024 12:35:39 Maternal Grandfather Diabetes mellitus [email or web address] Not available 06/19 10:17:57 Medical History Condition Response Allergies (Food, seasonal, environmental ) N Other Y Drug/Latex Allergies/Reactions N Breast Cancer N Blood Transfusion N Dermatologic Disorders N Lung Disease N Defects or Inherited Disease N Breast Problem N Gestational Diabetes N Hematologic disorders N Anesthesia Complications N History of STI N Deep Vein Thrombosis N Polycystic ovary syndrome N Anxiety Disorder N Autoimmune disease N Arthritis N Infertility N Polyps N Acid Reflux (GERD) N History of abnormal pap N Cancer N Stroke N Varicosities N Neurologic/Epilepsy N Endometriosis N High Cholesterol N Fibromyalgia N Headaches N Kidney Disease N Heart Problems N Thyroid Problems N Kidney or Bladder Problems N GI Problems N Eating Disorder N Anemia N Art (IVF or FET) N Psychiatric Illness N Ovarian Cancer N Diabetes N Pulmonary (TB, Asthma) N Hepatitis/Liver Disease N No Past Medical History Y Eczema N Urinary Tract Infection N Abuse/Domestic Violence N Asthma N Trauma/Violence N Depression/ depression N Heart Disease N Pre-Eclampsia N Hypertension N Osteoporosis N Thrombophilias N Gynecological History Statement/Question Response Abnormal Pap N Date of Last Mammogram Date of LMP 03/14/2024 On BCP's at Conception? N N Was last menstrual period normal Y STIs/STDs N HPV Vaccine N Duration of Flow (days) 5 Current Control Method Are cycles usually normal Y Sexually Active? Y None Menses Monthly Y Date of DEXA bone scan Age of first menstrual cycle 15 Date of Last Pap Smear 05/22/2024 Sexual Problems? N Desired Control Method None LMP Approximate N Obstetrics History GPAL:G 4 P 2 0 1 2 Type Value Full Term 2 Spontaneous 1 Living 2 Total 4 Past Encounters Encounter ID Performer Location Encounter Start Date Encounter Closed Date Diagnosis/Indication Diagnosis SNOMED-CT Code Diagnosis ICD10 Code Diagnosis IMO Codes Diagnosis Note [id number] Caro Butler CNM [address] [address] 04/20/2021 11:53:44 04/21/2021 17:09:42 test positive 621486504 Z32.01 Risk factors addressed: Tobacco Cessation, Safe Sexual Practices, environmen beata, work hazards, travel restrictio ns, seat belt use.Eat a health well balanced diet, avoid alcohol, tobacco, and street drugs.Enga ge in daily low impact exercise, avoid temperatur e extremes, and cat, rodent, and bird feces.Avoi d travel to areas where zika virus is a concern.Of fered cf/sma/nip t. Is considerin g testing. Handouts given and discussed with patient.Ch ildbirth classes recommende d.New OB sheet given.If previous , counseling .Pt verbalizes that she understand s the importance of above instructio ns.All questions were answered.P atient reminded to have annual well woman examinatio n and address [facility] [id number] Dayton Mathew MD [address],[place] [address] 04/20/2021 11:53:22 04/20/2021 12:44:34 [id number] Nancy Rayo MD [address],[facility] [place] [address] 05/19/2021 09:30:52 05/19/2021 10:00:44 screening 107349064 Z36.82 [id number] MD Latanya Lopez [address],[place] [address] 05/19/2021 09:31:18 05/19/2021 15:15:06 Routine care 486071532 Z34.91 [id number] MD Latanya Lopez [address],[place] [address] 06/15/2021 10:57:02 06/15/2021 12:04:30 Routine care 382696186 Z34.91 [id number] MD Latanya Lopez [address],[place] [address] 07/13/2021 12:20:54 07/14/2021 15:55:16 Routine care 022079502 Z34.91 Low-lying placenta 09651 2007 O44.42 [id number] MD Fatou [place] [address],[place] [address] 07/13/2021 11:29:10 07/13/2021 12:57:46 screening 418678496 Z36.3 [id number] MD Latanya Lopez [address],[place] [address] 08/10/2021 11:08:30 08/10/2021 11:36:54 Low-lying placenta 711485537 O44.42 Routine an tenatal care 105641296 Z34.91 [id number] MD Latanya Lopez [address],[place] [address] 08/17/2021 10:50:54 08/17/2021 12:04:13 Low-lying placenta 299691536 O44.40 Z3A.25 [id number] MD Latanya Lopez [address],[place] [address] 08/17/2021 11:56:49 08/17/2021 14:13:05 Short cervical length in 853080204 O26.879 [id number] MD Latanya Lopez [address],[place] [address] 09/07/2021 09:23:14 09/07/2021 10:44:47 Large for gestation age fetus 341153453 O36.63X0 [id number] MD Latanya Lopez [address],[place] [address] 09/07/2021 09:23:49 09/10/2021 15:08:17 Routine care 853751855 Z34.91 Short cerv ical length in 428930455 O26.879 [id number] MD Latanya Lopez [address],[place] [address] 09/28/2021 10:45:35 09/28/2021 11:54:19 Routine care 130901906 Z34.91 [id number] MD Latanya Lopez [address],[place] [address] 10/12/2021 09:57:12 10/12/2021 12:31:44 Large for gestation age fetus 232399735 O36.63X0 Z3A.33 [id number] MD Latanya Lopez [address],[place] [address] 10/12/2021 09:57:28 10/12/2021 11:32:38 Threatened premature labor - not delivered 421358758 O47.9 [id number] MD Latanya Lopez [address],[place] [address] 10/26/2021 10:44:45 10/27/2021 09:30:04 Routine care 678920669 Z34.91 [id number] MD Latanya Lopez [address],[place] [address] 11/03/2021 10:52:58 11/10/2021 15:21:55 Routine care 170083065 Z34.91 [id number] MD Latanya Lopez [address],[place] [address] 11/10/2021 11:59:03 11/10/2021 15:53:03 Routine care 770255964 Z34.91 [id number] MD Latanya Lopez [address],[place] [address] 11/17/2021 11:52:56 11/20/2021 13:01:29 Routine care 037683264 Z34.91 [id number] Nancy Rayo MD [facility] [address],[place] [address] 12/21/2021 11:09:40 12/21/2021 15:09:47 care 584207390 Z39.2 [id number] Ratna Hernandez [facility] [address],[place] [address] 03/22/2023 14:26:18 03/22/2023 15:47:10 Nausea 865300736 R11.0 Amenorrhea 36967014 N91. 2 [id number] Dayton Mathew MD [facility] [address],[place] [address] 03/22/2023 14:29:08 03/22/2023 15:15:56 screening 787826301 Z36.87 Z3A.01 [id number] Dayton Mathew MD [facility] [address],[place] [address] 04/18/2023 14:50:05 04/18/2023 15:38:17 Threatened miscarriage 66975643 O20.0 Z3A.11 [id number] Dayton Mathew MD [facility] [address],[place] [address] 04/26/2023 11:52:40 04/26/2023 12:40:39 screening 605539075 Z36.82 Z3A.12 [id number] [facility] [address],[place] [address] 04/26/2023 11:53:24 04/26/2023 13:44:48 Gestation period, 12 weeks 78788469 Z3A.12 Venereal d isease screening 344881679 Z11.3 [id number] ANGELINA REN MD [facility] [address],[place] [address] 05/24/2023 12:18:23 05/24/2023 13:03:56 Routine care 213575093 Z34.82 [id number] Dayton Mathew MD [facility] [address],[place] [address] 06/21/2023 11:47:40 06/21/2023 13:34:05 screening for malformation 289690780 Z36.3 Z3A.20 [id number] [facility] [address],[place] [address] 06/21/2023 11:49:41 06/21/2023 13:53:11 Routine care 653824100 Z34.92 [id number] Dayton Mathew MD [facility] [address],[place] [address] 07/19/2023 09:25:31 07/19/2023 10:26:08 condition affecting obstetrical care of mother 667254599 O35.03X0 Z3A.24 [id number] 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 [address],[place] [address] 08/23/2023 09:58:56 08/23/2023 11:06:20 Ratna Hernandez CNM [facility] [address],[place] [address] 09/06/2023 10:04:34 09/06/2023 10:41:37 Routine care 899925735 Z34.92 [id number] Ratna Hernandez CNM [facility] [address],[place] [address] 09/20/2023 10:34:42 09/20/2023 11:37:48 Routine care 735478077 Z34.92 [id number] Dayton Mathew MD [facility] [address],[place] [address] 10/04/2023 10:53:55 10/04/2023 11:34:27 Uterine size for dates discrepancy 794491014 O26.843 Z3A.35 [id number] Ratna Hernandez CNM [facility] [address],[place] [address] 10/04/2023 10:54:36 10/04/2023 11:52:27 [id number] Ratna Hernandez CNM [facility] [address],[place] [address] 10/11/2023 09:40:04 10/11/2023 10:15:07 Routine care 364132463 Z34.92 [id number] Dayton Mathew MD [facility] [address],[place] [address] 10/11/2023 10:03:03 10/11/2023 10:48:50 tachycardia 464709642 O36.8399 [id number] Ratna Hernandez CNM [facility] [address],[place] [address] 10/18/2023 11:26:09 10/18/2023 12:04:40 Routine care 447911946 Z34.92 [id number] Ratna Hernandez CNM [facility] [address],[place] [address] 10/25/2023 09:39:22 10/25/2023 10:16:11 Routine care 538132914 Z34.92 [id number] Ratna Hernandez CNM [facility] [address],[place] [address] 12/13/2023 09:45:15 12/13/2023 10:26:34 care 179550554 Z39.2 normal visit f/u 6 month wwe [id number] Dayton Mathew MD [facility] [address],[place] [address] 05/22/2024 09:57:03 05/22/2024 10:31:26 Uterine size for dates discrepancy 070385973 O26.843 Z3A.08 [id number] [facility] [address],[place] [address] 05/22/2024 09:58:37 05/22/2024 12:11:04 Gynecologic examination 49436392 Z01.419 pap collectedp nv dailyplan 12 week new ob [place] [id number] Dayton Mathew MD [facility] [address],[place] [address] 06/19/2024 09:27:35 06/19/2024 10:08:55 screening 419987942 Z36.82 Z3A.12 130399 [id number] [facility] [address],[place] [address] 06/19/2024 09:28:16 06/21/2024 10:36:56 Gestation period, 12 weeks 07528090 Z3A.12 [id number] s barnes of fetus 50209175 Z34.90 [id number] Datyon Mathew MD [facility] [address],[place] [address] 07/17/2024 13:44:30 07/17/2024 14:47:23 Low-lying placenta 449374107 O44.40 O36.8910 Z3A.16 13628762 [id number] Ratna Hernandez CNM [facility] [address],[place] [address] 07/17/2024 13:45:47 07/17/2024 15:04:38 Gestation period, 16 weeks 37587036 Z3A.16 8315650 [id number] Dayton Mathew MD [facility] [address],[place] [address] 08/14/2024 10:26:02 08/14/2024 11:57:33 Ultrasound scan - obstetric 557211974 Z36.3 Z3A.20 79361 [id number] Ratna Hernandez [facility] [address],[place] [address] 08/14/2024 10:28:49 08/14/2024 14:02:56 Gestation period, 20 weeks 01058016 Z3A.20 9190535 [id number] Ratna Hernandez [facility] [address],[place] [address] 09/11/2024 10:08:12 09/11/2024 10:44:28 Gestation period, 24 weeks 427037203 Z3A.24 6513929 [id number] Dayton Mathew MD [facility] [address],[place], [place] [address] 09/25/2024 11:53:00 09/25/2024 12:44:14 Placental condition affecting management of mother [id number] O43.92 Z3A.26 [id number] [facility] [address],[place] [address] 10/09/2024 10:05:31 10/09/2024 10:51:11 Gestation period, 28 weeks [id number] Z3A.28 [id number] Dayton Mathew MD [facility] [address],[place] [address] 10/23/2024 11:55:32 10/23/2024 12:31:54 Anomaly of placenta 04877327 O43.103 Z3A.30 [id number] [facility] [address],[place] [address] 10/23/2024 12:12:09 10/23/2024 13:23:37 Gestation period, 30 weeks 13820743 Z3A.30 [id number] Ratna Hernandez [facility] [address],[place] [address] 11/06/2024 12:00:18 11/06/2024 12:25:39 Gestation period, 32 weeks 7367152 Z3A.32 [id number] Dayton Mathew MD [facility] [address],[place] [address] 1 11/20/2024 14:24:49 11/20/2024 15:11:35 Past history of delivery of macrosomal infant [id number] 9102 O09.299 Z3A.34 [id number] Ratna Hernandez [facility] [address],[place] [address] 11/20/2024 14:26:27 11/20/2024 15:26:27 Gestation period, 34 weeks 64700157 Z3A.34 [id number] Ratna Hernandez [place] [address],[place] [address] 12/04/2024 09:29:32 12/04/2024 10:50:49 Gestation period, 36 weeks 44275646 Z3A.36 [id number] Ratna Hernandez [facility] [address],[place] [address] 1 12/11/2024 10:27:11 12/11/2024 11:47:20 Gestation period, 37 weeks [id number] Z3A.37 [id number] Health Concerns Section Related Observation LastModified by Organization Detai ls LastModified Time None Recorded Concern Status LastModified by Organization Details LastModified Time None Recorded Advance Directives Directive N: Payers Insurance Date Sequence Insurance Name Policy Number Policy [place] Covered Member ID [place] Member ID Guarantor Name 06/21/2023 1 ROJAS (PPO) [id number] Bri Paige [id number] Marianela Pierson 12/04/2024 PAYMENT PLAN Marianela Pierson 10/04/2023 1 ROJAS (PPO) [id number] Bri Paige [id number] Marianela Pierson 12/15/2024 1 [place] [id number] Marianela Pierson [id number] Marianela Pierson 03/21/2023 1 CIG[employer] [id number] Bri Paige [id number] Marianela Pierson 12/06/2024 PAYMENT PLAN Marianela Pierson 12/06/2024 PAYMENT PLAN Marianela Pierson 07/19/2023 1 *SELF PAY* Geetha Pierson Notes Date Note Type Note Provider Name and Address Organization Details Recorded Time 11/06/2024 text/html Generic HPI TemplateReported by Patient Ratna Hernandez CNM [address], [place], [address], [facility] 11/06/2024 12:24:31 11/20/2024 text/html Generic HPI TemplateReported by Patient Ratna Hernandez CNM [address], [place], [address], [facility] 11/20/2024 15:25:46 12/04/2024 text/html Generic HPI TemplateReported by Patient Ratna Hernandez CNM [address], [place], [address], [facility] 12/04/2024 10:39:39 12/11/2024 text/html Generic HPI TemplateReported by Patient Ratna Hernandez CNM [address], [place], [address], [facility] 12/11/2024 11:42:50 OBGyn Episode Ob Episode Information Episode Created Date Number of Fetuses Patient Bloodtype Patient rh Status Prepregnancy Weight lbs Domestic Partner Domestic Partner Phone Father Name Plant Security Guard Status 05/20/19 22 1 A Negative 127 CLOSED Fetus Data First Name Last Name Admitted to NICU Weight (g) Sex Living Outcome Pediatric Complications Fetus ID Race Codes Race Delivery Type Johnie 4422.52 2 M true Full Term term mecon [id number] Vaginal Delivery Problems Problem Notes Rayo pt Problem Name Start Date End Date Resolution Snomed Code Not e Short cervical length in [id number] with fun neling 25w, incidentally found - Wash U MFM 08/19/21 - Just PTL precautions r/t GA RhD negative 05/21/2021 [id number] Arnaud Calculation Initial Arnaud Date Initial Exam Date Initial Exam Provider Initial Ultrasound Date Last Menstrual Period Date Ultra Sound Weeks Gestation 11/28/2021 05/19/2021 04/20/2021 02/21/2021 8 Eighteen To Twenty Week Arnaud Update Ultra Sound Date Fundal Height At Umbil Quickening Date Ultra Sound Latest Weeks Gestation Final Arnaud Confirmed By Final Arnaud Confirmed Date Final Arnaud Date Ultra Sound Latest Days Gestation 0 [email or web address] 05/19/2021 11/29/19 0 Pre-prakash Flowsheet Flowsheet Date 05/19/2021 Dennison Score Blood Edema Fundus Height Fundus Units Glucose Ketones Leukocytes Nitrite Labor Signs Protein Cervic Dilation Cervic Effacement Cervic Station neg none none trace Type Weight in lbs Pre/Post Dialysis Refused Weight 123.535200827346 BP Diastolic BP Location Tested BP Systolic BP Type 75 109 Fetus Heart Rate Present A 165 Fetus Movement A No Comments Marianela is a 26y oG1 at 12.3 f or care. Her history is noncontributory. She is having some nause, but improving lately. She has not had flu or COVID vaccines, discussed and encouraged. Labs and NIPt today. Flowsheet Date 06/15/2021 Dennison Score Blood Edema Fundus Height Fundus Units Glucose Ketones Leukocytes Nitrite Labor Signs Protein Cervic Dilation Cervic Effacement Cervic Station neg none none trace Type Weight in lbs Pre/Post Dialysis Refused Weight 127.085649324956 BP Diastolic BP Location Tested BP Systolic BP Type 72 110 Fetus Heart Rate Present A 160 Fetus Movement A No Comments Feeling much better. NO FM y et. Declines COVID vaccine. Anatomy US next visit. Flowsheet Date 07/13/2021 Dennison Score Blood Edema Fundus Height Fundus Units Glucose Ketones Leukocytes Nitrite Labor Signs Protein Cervic Dilation Cervic Effacement Cervic Station Type Weight in lbs Pre/Post Dialysis Refused BP Diastolic BP Location Tested BP Systolic BP Type Fetus Heart Rate Present Fetus Movement Comments Flowsheet Date 07/13/2021 Dennison Score Blood Edema Fundus Height Fundus Units Glucose Ketones Leukocytes Nitrite Labor Signs Protein Cervic Dilation Cervic Effacement Cervic Station neg none none trace Type Weight in lbs Pre/Post Dialysis Refused Weight 135.80096219149 BP Diastolic BP Location Tested BP Systolic BP Type 67 104 Fetus Heart Rate Present A 145 Fetus Movement A Yes Comments Doing great, no concerns. US today anatomy complete and wnl, placenta low lying at 1.8cm. Precautions given. Repeat US next visit. Discussed RH neg and Rhogam. Flowsheet Date 08/10/2021 Dennison Score Blood Edema Fundus Height Fundus Units Glucose Ketones Leukocytes Nitrite Labor Signs Protein Cervic Dilation Cervic Effacement Cervic Station neg none 23 none trace Type Weight in lbs Pre/Post Dialysis Refused Weight 142.201829802739 BP Diastolic BP Location Tested BP Systolic BP Type 65 102 Fetus Heart Rate Present A 150 Fetus Movement A Yes Comments Feeling much better, some FM . US for LL placenta next week. Rhogam orders given. No bleeding. Flowsheet Date 08/17/2021 Dennison Score Blood Edema Fundus Height Fundus Units Glucose Ketones Leukocytes Nitrite Labor Signs Protein Cervic Dilation Cervic Effacement Cervic Station Type Weight in lbs Pre/Post Dialysis Refused BP Diastolic BP Location Tested BP Systolic BP Type Fetus Heart Rate Present Fetus Movement Comments Flowsheet Date 08/17/2021 Dennison Score Blood Edema Fundus Height Fundus Units Glucose Ketones Leukocytes Nitrite Labor Signs Protein Cervic Dilation Cervic Effacement Cervic Station Type Weight in lbs Pre/Post Dialysis Refused Weight 141.192571093955 BP Diastolic BP Location Tested BP Systolic BP Type 70 105 Fetus Heart Rate Present Fetus Movement Comments Had US only today. While doi edmar transvag US for follow up low lying placenta, incidentally noted to have cervical funneling. Nonfunneled part of cervix 2cm. Pt denies and bleeding, leaking, contractions, or pressure. Last week she had some lower abdominal tightening once daily. Cervix digitally closed. Precautions given, no strenuous activity, will get MFM recs.Growth 57% and LLP resolved. Flowsheet Date 09/07/2021 Dennison Score Blood Edema Fundus Height Fundus Units Glucose Ketones Leukocytes Nitrite Labor Signs Protein Cervic Dilation Cervic Effacement Cervic Station Type Weight in lbs Pre/Post Dialysis Refused BP Diastolic BP Location Tested BP Systolic BP Type Fetus Heart Rate Present Fetus Movement Comments Flowsheet Date 09/07/2021 Dennison Score Blood Edema Fundus Height Fundus Units Glucose Ketones Leukocytes Nitrite Labor Signs Protein Cervic Dilation Cervic Effacement Cervic Station neg none 31 none trace Type Weight in lbs Pre/Post Dialysis Refused Weight 148.161939259548 BP Diastolic BP Location Tested BP Systolic BP Type 68 106 Fetus Heart Rate Present A 150 Fetus Movement A Yes Comments Doing well so far. US today LGA at 90%, will monitor. Doing Rhogam and GCT at today. Discussed and encouraged Tdap. Saw MFM for funneling cervix, denies ctx or bleeding. Will follow clinically. Repeat growth 4 weeks. Flowsheet Date 09/28/2021 Dennison Score Blood Edema Fundus Height Fundus Units Glucose Ketones Leukocytes Nitrite Labor Signs Protein Cervic Dilation Cervic Effacement Cervic Station neg none 30 none trace Type Weight in lbs Pre/Post Dialysis Refused Weight 152.859036030762 BP Diastolic BP Location Tested BP Systolic BP Type 69 107 Fetus Heart Rate Present A 145 Fetus Movement A Yes Comments Doing well. Got Rhogam. Will do Tdap. Discussed classes. Growth US next visit. Flowsheet Date 10/12/2021 Dennison Score Blood Edema Fundus Height Fundus Units Glucose Ketones Leukocytes Nitrite Labor Signs Protein Cervic Dilation Cervic Effacement Cervic Station Type Weight in lbs Pre/Post Dialysis Refused BP Diastolic BP Location Tested BP Systolic BP Type Fetus Heart Rate Present Fetus Movement Comments Flowsheet Date 10/12/2021 Dennison Score Blood Edema Fundus Height Fundus Units Glucose Ketones Leukocytes Nitrite Labor Signs Protein Cervic Dilation Cervic Effacement Cervic Station neg none 33 none trace Type Weight in lbs Pre/Post Dialysis Refused Weight 153.976972690176 BP Diastolic BP Location Tested BP Systolic BP Type 80 128 Fetus Heart Rate Present A 125 Fetus Movement A Yes Comments Was in hospital for contract ions, got steroids, resolved. Now only 1 per hour or so. Getting Tdap this week. Will do GBS in 2 weeks. US today EFW 82%, normal fluid. Flowsheet Date 10/26/2021 Dennison Score Blood Edema Fundus Height Fundus Units Glucose Ketones Leukocytes Nitrite Labor Signs Protein Cervic Dilation Cervic Effacement Cervic Station neg none 36 none trace 3cm 80% -2 Type Weight in lbs Pre/Post Dialysis Refused Weight 159.129817811201 BP Diastolic BP Location Tested BP Systolic BP Type 74 113 Fetus Heart Rate Present A 160 Fetus Movement A Yes Comments Doing fine. Irregular contra ctions. Tdap is done. GBS done and discussed today. Cervix very favorable, labor precautions given. Suspect may labor in the next couple weeks. Flowsheet Date 11/03/2021 Dennison Score Blood Edema Fundus Height Fundus Units Glucose Ketones Leukocytes Nitrite Labor Signs Protein Cervic Dilation Cervic Effacement Cervic Station neg none 36 none trace 4cm 80% -2 Type Weight in lbs Pre/Post Dialysis Refused Weight 161.644515310914 BP Diastolic BP Location Tested BP Systolic BP Type 81 126 Fetus Heart Rate Present A 130 Fetus Movement A Yes Comments Doing ok, irregular contract ions. GBS neg. Precautions given. FU weekly. Flowsheet Date 11/10/2021 Dennison Score Blood Edema Fundus Height Fundus Units Glucose Ketones Leukocytes Nitrite Labor Signs Protein Cervic Dilation Cervic Effacement Cervic Station neg trace 37 none trace 4cm 80% -2 Type Weight in lbs Pre/Post Dialysis Refused Weight 163.814990988928 BP Diastolic BP Location Tested BP Systolic BP Type 85 122 Fetus Heart Rate Present A 155 Fetus Movement A Yes Comments Doing fine, good FM, some ct x. would like IOL on if doesn't labor before then. Precautions given. Flowsheet Date 11/17/2021 Dennison Score Blood Edema Fundus Height Fundus Units Glucose Ketones Leukocytes Nitrite Labor Signs Protein Cervic Dilation Cervic Effacement Cervic Station neg none 37 none trace 5cm 80% Type Weight in lbs Pre/Post Dialysis Refused Weight 163.208321126583 BP Diastolic BP Location Tested BP Systolic BP Type 90 138 90 140 88 132 Fetus Heart Rate Present Fetus Movement A Yes Comments Doing ok. Had PALMA yesterday, none today. Irregular contractions. IOL monday. Precautions given. Great FM. Flowsheet Date 12/21/2021 Dennison Score Blood Edema Fundus Height Fundus Units Glucose Ketones Leukocytes Nitrite Labor Signs Protein Cervic Dilation Cervic Effacement Cervic Station Type Weight in lbs Pre/Post Dialysis Refused Weight 147.255316014605 BP Diastolic BP Location Tested BP Systolic BP Type 79 112 Fetus Heart Rate Present Fetus Movement Comments Menstrual History Last Menstrual Date Menses Monthly On Bcp Conception Prior Menses Frequency Hcg Plus Date Menarche Onset Age 1202/21/2021 Genetic Screening And Infection History Question Response Note Mental Retardation/Autism false Patient's Age Will Be 35 Years Or Older At Estim ated Date of Delivery false Thalassemia (Sao Tomean, Luxembourgish, Mediterranean, Or Background): MCV < 80 false Neural Tube Defect (Meningomyelocele, Spina Bifi da, Or Anencephaly) false Congenital Heart Defect false Down Syndrome false Benjie-Sachs (eg, Jehovah'S Witness, Cajun, Salvadorean-Wilkinson) f alse Lexi Disease false Sickle Cell Disease Or Trait () false Hemophilia Or Other Blood Disorders false Muscular Dystrophy false Cystic Fibrosis false Bob's Chorea false Intellectual Disability/Autism false If Yes, Was Person Tested For Fragile X? false Other Inherited Genetic Or Chromosomal Disorder false Maternal Metabolic Disorder (eg, Type 1 Diabetes , PKU) false Patient Or Baby's Father Had A Child With Defects Not Listed Above false Recurrent Loss, Or A Stillbirth false Medications (including Suppl ements, Vitamins, Herbs, OTC Drugs), Illicit/Recreational Drugs, Alcohol false If Yes, Agent(s) And Strength/Dosage false Any Other Genetic History false Live With Someone With TB Or Exposed To TB false Patient Or Partner Has History Of Genital Herpes false Rash Or Viral Illness Since Last Menstrual Perio d false History Of STD, Gonorrhea, Chlamydia, HPV, Syphi lis false Other Infection History false History of HIV false History of Hepatitis false Prior GBS-infected child false Hemoglobinopathy Or Carrier false Other Structural Defect false Recent Travel History Outside of Country false Delivery Information Delivery Date Delivery Type Labor Anesthesia Weeks Gestation Incision Type Labor Labor Length Hrs Delivered By Post Complications Tubal Sterilization Discharge Date Comments [facility] idural 39.1 false Nancy Rayo MD EBL 1,200, Prolonged ROM Discharge Information Feeding Method Contraceptive Method Maternal HG B and HCT Levels Ob Episode Information Episode Created Date Number of Fetuses Patient Bloodtype Patient rh Status Prepregnancy Weight lbs Domestic Partner Domestic Partner Phone Father Name Plant Security Guard Status 01/24/20 23 1 CLOSED Fetus Data First Name Last Name Admitted to NICU Weight (g) Sex Living Outcome Pediatric Complications Fetus ID Race Codes Race Delivery Type , Spontane ous [id number] Arnaud Calculation Initial Arnaud Date Initial Exam Date Initial Exam Provider Initial Ultrasound Date Last Menstrual Period Date Ultra Sound Weeks Gestation 0 Eighteen To Twenty Week Arnaud Update Ultra Sound Date Fundal Height At Umbil Quickening Date Ultra Sound Latest Weeks Gestation Final Arnaud Confirmed By Final Arnaud Confirmed Date Final Arnaud Date Ultra Sound Latest Days Gestation 0 0 Menstrual History Last Menstrual Date Menses Monthly On Bcp Conception Prior Menses Frequency Hcg Plus Date Menarche Onset Age Delivery Information Delivery Date Delivery Type Labor Anesthesia Weeks Gestation Incision Type Labor Labor Length Hrs Delivered By Post Complications Tubal Sterilization Discharge Date Comments 3 Discharge Information Feeding Method Contraceptive Method Maternal HG B and HCT Levels Ob Episode Information Episode Created Date Number of Fetuses Patient Bloodtype Patient rh Status Prepregnancy Weight lbs Domestic Partner Domestic Partner Phone Father Name Plant Security Guard Status 06/20/19 25 1 A Negative 128 William Hayen OPEN Fetus Data First Name Last Name Admitted to NICU Weight (g) Sex Living Outcome Pediatric Complications Fetus ID Race Codes Race Delivery Type [id number] Problems Problem Notes hx lGA x 2blood type A negat tabitha rhogam at 28 weeksSCH Problem Name Start Date End Date Resolution Snomed Code Not e Venous de la paz 06/24/2024 [id number] Bleeding 06/21/2024 [id number] postpartu m after first delivery Placenta previa 07/17/2024 [id number] res olved 08/14/24 Iron deficiency anemia 10/16/2024 [id number] HGB 9.7 Draw an emia panel 10/23IV iron infusions - faxed order 10/25 - Insurance covers 50% of infusions - pt decline scheduling yet - pending financial assistanceper inpatient hospital if needed Arnaud Calculation Initial Arnaud Date Initial Exam Date Initial Exam Provider Initial Ultrasound Date Last Menstrual Period Date Ultra Sound Weeks Gestation 12/19/2024 05/22/2024 [email or web address] 05/22/2024 03/14/2024 8 Eighteen To Twenty Week Arnaud Update Ultra Sound Date Fundal Height At Umbil Quickening Date Ultra Sound Latest Weeks Gestation Final Arnaud Confirmed By Final Arnaud Confirmed Date Final Arnaud Date Ultra Sound Latest Days Gestation 0 12/29/19 25 0 Pre-prakash Flowsheet Flowsheet Date 06/19/2024 Dennison Score Blood Edema Fundus Height Fundus Units Glucose Ketones Leukocytes Nitrite Labor Signs Protein Cervic Dilation Cervic Effacement Cervic Station neg none none trace Type Weight in lbs Pre/Post Dialysis Refused Weight 127.337245679289 BP Diastolic BP Location Tested BP Systolic BP Type 73 115 Fetus Heart Rate Present Fetus Movement A No Comments reviewed history. doing well , reviewed us- subchorionic hemorrhage, venous de la paz, rpt 4 weeks begin routine care Flowsheet Date 07/17/2024 Dennison Score Blood Edema Fundus Height Fundus Units Glucose Ketones Leukocytes Nitrite Labor Signs Protein Cervic Dilation Cervic Effacement Cervic Station Type Weight in lbs Pre/Post Dialysis Refused BP Diastolic BP Location Tested BP Systolic BP Type Fetus Heart Rate Present Fetus Movement Comments Flowsheet Date 07/17/2024 Dennison Score Blood Edema Fundus Height Fundus Units Glucose Ketones Leukocytes Nitrite Labor Signs Protein Cervic Dilation Cervic Effacement Cervic Station neg none Type Weight in lbs Pre/Post Dialysis Refused 130.876192103422 BP Diastolic BP Location Tested BP Systolic BP Type 69 101 Fetus Heart Rate Present Fetus Movement A Yes Comments venous de la paz not seen, previa noted, pelvic rest and lifting restrictions, small bilateral rivet sorter f/u anatomy scan ed precautions, no complaints of cramping or bleeding Flowsheet Date 08/14/2024 Dennison Score Blood Edema Fundus Height Fundus Units Glucose Ketones Leukocytes Nitrite Labor Signs Protein Cervic Dilation Cervic Effacement Cervic Station Type Weight in lbs Pre/Post Dialysis Refused BP Diastolic BP Location Tested BP Systolic BP Type Fetus Heart Rate Present Fetus Movement Comments Flowsheet Date 08/14/2024 Dennison Score Blood Edema Fundus Height Fundus Units Glucose Ketones Leukocytes Nitrite Labor Signs Protein Cervic Dilation Cervic Effacement Cervic Station neg none Type Weight in lbs Pre/Post Dialysis Refused 132.265963455367 BP Diastolic BP Location Tested BP Systolic BP Type 69 107 Fetus Heart Rate Present Fetus Movement A Yes Comments anatomy scan resolved, +FM p revia resolved, venous de la paz stable, reviewed precautions and education Flowsheet Date 09/11/2024 Dennison Score Blood Edema Fundus Height Fundus Units Glucose Ketones Leukocytes Nitrite Labor Signs Protein Cervic Dilation Cervic Effacement Cervic Station Type Weight in lbs Pre/Post Dialysis Refused 137.892738438294 BP Diastolic BP Location Tested BP Systolic BP Type 65 L arm 99 sitting Fetus Heart Rate Present Fetus Movement A Yes Comments +FM, doing well, order for r hogam and gct given for 28 weeks, discussed tdap at 28 weeks, precautions and education f/u 4 weeks Flowsheet Date 09/25/2024 Dennison Score Blood Edema Fundus Height Fundus Units Glucose Ketones Leukocytes Nitrite Labor Signs Protein Cervic Dilation Cervic Effacement Cervic Station Type Weight in lbs Pre/Post Dialysis Refused BP Diastolic BP Location Tested BP Systolic BP Type Fetus Heart Rate Present Fetus Movement Comments Flowsheet Date 10/09/2024 Dennison Score Blood Edema Fundus Height Fundus Units Glucose Ketones Leukocytes Nitrite Labor Signs Protein Cervic Dilation Cervic Effacement Cervic Station Type Weight in lbs Pre/Post Dialysis Refused Weight 141.215895604203 BP Diastolic BP Location Tested BP Systolic BP Type 66 L arm 105 sitting Fetus Heart Rate Present A 154 Present Fetus Movement A Yes Comments reviewed us, placental de la paz will rpt in 2 weeks, order for rhogam given, precautions and education +FM Flowsheet Date 10/23/2024 Dennison Score Blood Edema Fundus Height Fundus Units Glucose Ketones Leukocytes Nitrite Labor Signs Protein Cervic Dilation Cervic Effacement Cervic Station Type Weight in lbs Pre/Post Dialysis Refused BP Diastolic BP Location Tested BP Systolic BP Type Fetus Heart Rate Present Fetus Movement Comments Flowsheet Date 10/23/2024 Dennison Score Blood Edema Fundus Height Fundus Units Glucose Ketones Leukocytes Nitrite Labor Signs Protein Cervic Dilation Cervic Effacement Cervic Station Type Weight in lbs Pre/Post Dialysis Refused Weight 144.04862632965 BP Diastolic BP Location Tested BP Systolic BP Type 65 L arm 110 sitting Fetus Heart Rate Present Fetus Movement A Yes Comments efw 62%, doing well +FM, edu cation and precautions f/u 2 weeks hx LGA Flowsheet Date 11/06/2024 Dennison Score Blood Edema Fundus Height Fundus Units Glucose Ketones Leukocytes Nitrite Labor Signs Protein Cervic Dilation Cervic Effacement Cervic Station Type Weight in lbs Pre/Post Dialysis Refused Weight 145.268108664088 BP Diastolic BP Location Tested BP Systolic BP Type 61 L arm 97 sitting Fetus Heart Rate Present A 154 Present Fetus Movement A Yes Comments +FM, plan zpack, education a nd precautions f/u 2 weeks with growth Flowsheet Date 11/20/2024 Dennison Score Blood Edema Fundus Height Fundus Units Glucose Ketones Leukocytes Nitrite Labor Signs Protein Cervic Dilation Cervic Effacement Cervic Station Type Weight in lbs Pre/Post Dialysis Refused BP Diastolic BP Location Tested BP Systolic BP Type Fetus Heart Rate Present Fetus Movement Comments Flowsheet Date 11/20/2024 Dennison Score Blood Edema Fundus Height Fundus Units Glucose Ketones Leukocytes Nitrite Labor Signs Protein Cervic Dilation Cervic Effacement Cervic Station Type Weight in lbs Pre/Post Dialysis Refused Weight 146.250477459453 BP Diastolic BP Location Tested BP Systolic BP Type 64 L arm 106 sitting Fetus Heart Rate Present Fetus Movement A Yes Comments +FM efw 62%, doing well prec autions an education f/u 2 weeks plan gbs Flowsheet Date 12/04/2024 Dennison Score Blood Edema Fundus Height Fundus Units Glucose Ketones Leukocytes Nitrite Labor Signs Protein Cervic Dilation Cervic Effacement Cervic Station Type Weight in lbs Pre/Post Dialysis Refused Weight 147.301103618620 BP Diastolic BP Location Tested BP Systolic BP Type 71 L arm 108 sitting Fetus Heart Rate Present Fetus Movement A Yes Comments gbs today, +FM, doing well I OL scheduled. precautions and education f/u 1 week Flowsheet Date 12/11/2024 Dennison Score Blood Edema Fundus Height Fundus Units Glucose Ketones Leukocytes Nitrite Labor Signs Protein Cervic Dilation Cervic Effacement Cervic Station 3cm 70% Type Weight in lbs Pre/Post Dialysis Refused Weight 149.44706837304 BP Diastolic BP Location Tested BP Systolic BP Type 74 L arm 115 sitting Fetus Heart Rate Present Fetus Movement A Yes Comments +FM, precautions and educati on, f/u one week Menstrual History Last Menstrual Date Menses Monthly On Bcp Conception Prior Menses Frequency Hcg Plus Date Menarche Onset Age 0103/14/2022 Delivery Information Delivery Date Delivery Type Labor Anesthesia Weeks Gestation Incision Type Labor Labor Length Hrs Delivered By Post Complications Tubal Sterilization Discharge Date Comments Discharge Information Feeding Method Contraceptive Method Maternal HG B and HCT Levels Ob Episode Information Episode Created Date Number of Fetuses Patient Bloodtype Patient rh Status Prepregnancy Weight lbs Domestic Partner Domestic Partner Phone Father Name Plant Security Guard Status 04/26/19 24 1 A Negative 126 CLOSED Fetus Data First Name Last Name Admitted to NICU Weight (g) Sex Living Outcome Pediatric Complications Fetus ID Race Codes Race Delivery Type [id number] M true Full Term [id number] Vaginal Delivery Problems Problem Notes 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 08/22 Problem Name Start Date End Date Resolution Snomed Code Not e Prophylactic immunotherapy [id number] A-; rhogam received 04/18/23 & 08/23/23 Past history of hemorrhage [id number] Arnaud Calculation Initial Arnaud Date Initial Exam Date Initial Exam Provider Initial Ultrasound Date Last Menstrual Period Date Ultra Sound Weeks Gestation 11/07/2023 03/22/2023 03/22/2023 7 Eighteen To Twenty Week Arnaud Update Ultra Sound Date Fundal Height At Umbil Quickening Date Ultra Sound Latest Weeks Gestation Final Arnaud Confirmed By Final Arnaud Confirmed Date Final Arnaud Date Ultra Sound Latest Days Gestation 04/26/19 12 [email or web address] 04/26/2023 11/03/19 5 Pre-prakash Flowsheet Flowsheet Date 04/26/2023 Dennison Score Blood Edema Fundus Height Fundus Units Glucose Ketones Leukocytes Nitrite Labor Signs Protein Cervic Dilation Cervic Effacement Cervic Station neg none none trace Type Weight in lbs Pre/Post Dialysis Refused Weight 128.778266368141 BP Diastolic BP Location Tested BP Systolic BP Type 72 110 Fetus Heart Rate Present Fetus Movement A No Comments patient states that had some spotting 2 weeks ago and than received rhogam injection 04/18/2023. no spotting since episode, reviewed us, last baby 9lb 12 oz at term, unremarkable surgical, medical history, precautions and education f/u 4 weeks Flowsheet Date 05/24/2023 Dennison Score Blood Edema Fundus Height Fundus Units Glucose Ketones Leukocytes Nitrite Labor Signs Protein Cervic Dilation Cervic Effacement Cervic Station neg none none trace Type Weight in lbs Pre/Post Dialysis Refused Weight 135.27231439093 BP Diastolic BP Location Tested BP Systolic BP Type 78 118 Fetus Heart Rate Present A 150 Fetus Movement A Yes Comments Patient states that having s ome nausea however improving. No cramping or further bleeding. LR male NIPT. other new OB labs wnl. RTC 4 weeks for anatomy US. Flowsheet Date 06/21/2023 Dennison Score Blood Edema Fundus Height Fundus Units Glucose Ketones Leukocytes Nitrite Labor Signs Protein Cervic Dilation Cervic Effacement Cervic Station Type Weight in lbs Pre/Post Dialysis Refused BP Diastolic BP Location Tested BP Systolic BP Type Fetus Heart Rate Present Fetus Movement Comments Flowsheet Date 06/21/2023 Dennison Score Blood Edema Fundus Height Fundus Units Glucose Ketones Leukocytes Nitrite Labor Signs Protein Cervic Dilation Cervic Effacement Cervic Station neg none none trace Type Weight in lbs Pre/Post Dialysis Refused Weight 142.087138905100 BP Diastolic BP Location Tested BP Systolic BP Type 75 124 Fetus Heart Rate Present Fetus Movement A Yes Comments anatomy complete, bilateral choroid plexus cysts, LR NIPS, will rpt in 4 weeks, education and precautions reviewed f/u 4 weeks Flowsheet Date 07/19/2023 Dennison Score Blood Edema Fundus Height Fundus Units Glucose Ketones Leukocytes Nitrite Labor Signs Protein Cervic Dilation Cervic Effacement Cervic Station Type Weight in lbs Pre/Post Dialysis Refused BP Diastolic BP Location Tested BP Systolic BP Type Fetus Heart Rate Present Fetus Movement Comments Flowsheet Date 07/19/2023 Dennison Score Blood Edema Fundus Height Fundus Units Glucose Ketones Leukocytes Nitrite Labor Signs Protein Cervic Dilation Cervic Effacement Cervic Station neg none none neg Type Weight in lbs Pre/Post Dialysis Refused Weight 151.911490417655 BP Diastolic BP Location Tested BP Systolic BP Type 75 120 Fetus Heart Rate Present Fetus Movement A Yes Comments Patient is having some disch arge. bilateral rivet sorter check growth, await dr. barragan reading for additional orders, efw 54%, +FM, doing well order gave for rhogam and GCT at [place], precautions and education reviewed Flowsheet Date 08/23/2023 Dennison Score Blood Edema Fundus Height Fundus Units Glucose Ketones Leukocytes Nitrite Labor Signs Protein Cervic Dilation Cervic Effacement Cervic Station Type Weight in lbs Pre/Post Dialysis Refused BP Diastolic BP Location Tested BP Systolic BP Type Fetus Heart Rate Present Fetus Movement Comments Flowsheet Date 08/23/2023 Dennison Score Blood Edema Fundus Height Fundus Units Glucose Ketones Leukocytes Nitrite Labor Signs Protein Cervic Dilation Cervic Effacement Cervic Station none Type Weight in lbs Pre/Post Dialysis Refused Weight 159.033604600624 BP Diastolic BP Location Tested BP Systolic BP Type 73 111 Fetus Heart Rate Present Fetus Movement A Yes Comments efw 49% unilateral rivet sorter, vert ex, doing well, had gct going today for rhogam, precautions and education f/u 2 weeks Flowsheet Date 09/06/2023 Dennison Score Blood Edema Fundus Height Fundus Units Glucose Ketones Leukocytes Nitrite Labor Signs Protein Cervic Dilation Cervic Effacement Cervic Station none 29 Type Weight in lbs Pre/Post Dialysis Refused Weight 164.03176669368 BP Diastolic BP Location Tested BP Systolic BP Type 69 109 Fetus Heart Rate Present A 150 Present Fetus Movement A Yes Comments Patient is having some contr actions. call for preadmit, doing well, hx pp hemorrhage precautions and education Flowsheet Date 09/20/2023 Dennison Score Blood Edema Fundus Height Fundus Units Glucose Ketones Leukocytes Nitrite Labor Signs Protein Cervic Dilation Cervic Effacement Cervic Station none Type Weight in lbs Pre/Post Dialysis Refused Weight 164.75357919778 BP Diastolic BP Location Tested BP Systolic BP Type 72 112 Fetus Heart Rate Present Fetus Movement A Yes Comments Patient states that having s ome contractions and discharge. PTL precautions reviewed, f/u 2 weeks and plan gbs, education reviewed, discussed tdap Flowsheet Date 10/04/2023 Dennison Score Blood Edema Fundus Height Fundus Units Glucose Ketones Leukocytes Nitrite Labor Signs Protein Cervic Dilation Cervic Effacement Cervic Station Type Weight in lbs Pre/Post Dialysis Refused BP Diastolic BP Location Tested BP Systolic BP Type Fetus Heart Rate Present Fetus Movement Comments Flowsheet Date 10/04/2023 Dennison Score Blood Edema Fundus Height Fundus Units Glucose Ketones Leukocytes Nitrite Labor Signs Protein Cervic Dilation Cervic Effacement Cervic Station none 1cm 50% -2 Type Weight in lbs Pre/Post Dialysis Refused 168.680600254623 BP Diastolic BP Location Tested BP Systolic BP Type 75 112 Fetus Heart Rate Present Fetus Movement A Yes Comments Patient states that feel her heart rate is elevated and is having some low blood pressure. Patient states that is having some contractions and discharge. ed precautions if sob chest pain, +FM, efw 70%, call for preadmit, GBS collected, f/u one week Flowsheet Date 10/11/2023 Dennison Score Blood Edema Fundus Height Fundus Units Glucose Ketones Leukocytes Nitrite Labor Signs Protein Cervic Dilation Cervic Effacement Cervic Station 35 cm 2cm 70% -2 Type Weight in lbs Pre/Post Dialysis Refused Weight 170.099781148241 BP Diastolic BP Location Tested BP Systolic BP Type 70 L arm 106 sitting Fetus Heart Rate Present A 170 Present Fetus Movement A Yes Comments NST today for tachycar lakia, doing well, +FM, precautions and education Flowsheet Date 10/11/2023 Dennison Score Blood Edema Fundus Height Fundus Units Glucose Ketones Leukocytes Nitrite Labor Signs Protein Cervic Dilation Cervic Effacement Cervic Station Type Weight in lbs Pre/Post Dialysis Refused BP Diastolic BP Location Tested BP Systolic BP Type Fetus Heart Rate Present Fetus Movement Comments Flowsheet Date 10/18/2023 Dennison Score Blood Edema Fundus Height Fundus Units Glucose Ketones Leukocytes Nitrite Labor Signs Protein Cervic Dilation Cervic Effacement Cervic Station none 36 cm 2cm 70% -2 Type Weight in lbs Pre/Post Dialysis Refused Weight 171.844175868512 BP Diastolic BP Location Tested BP Systolic BP Type 74 116 Fetus Heart Rate Present A 146 Present Fetus Movement A Yes Comments Patient states that is havin g some pain and contraction and discharge. Flowsheet Date 10/25/2023 Dennison Score Blood Edema Fundus Height Fundus Units Glucose Ketones Leukocytes Nitrite Labor Signs Protein Cervic Dilation Cervic Effacement Cervic Station 2cm 70% -2 Type Weight in lbs Pre/Post Dialysis Refused Weight 170.756822220702 BP Diastolic BP Location Tested BP Systolic BP Type 66 106 Fetus Heart Rate Present Fetus Movement A Yes Comments Patient is having some contr actions and discharge. membrane sweep done, +FM, education and precautions, IOL 10/26 Menstrual History Last Menstrual Date Menses Monthly On Bcp Conception Prior Menses Frequency Hcg Plus Date Menarche Onset Age Genetic Screening And Infection History Question Response Note Mental Retardation/Autism false Patient's Age Will Be 35 Yea rs Or Older At Estimated Date of Delivery false Thalassemia (Sao Tomean, Luxembourgish, Mediterranean, Or Background): MCV < 80 false Neural Tube Defect (Meningom yelocele, Spina Bifida, Or Anencephaly) false Congenital Heart Defect false Down Syndrome false Benjie-Sachs (eg, Jehovah'S Witness, Cajun, Salvadorean-Wilkinson) f alse Lexi Disease false Sickle Cell Disease Or Trait () false Hemophilia Or Other Blood Disorders false Muscular Dystrophy false Cystic Fibrosis false [place]'s Chorea false Intellectual Disability/Autism false If Yes, Was Person Tested For Fragile X? false Other Inherited Genetic Or Chromosomal Disorder false Maternal Metabolic Disorder (eg, Type 1 Diabetes , PKU) false Patient Or Baby's Father Had A Child With Defects Not Listed Above false Recurrent Loss, Or A Stillbirth false Medications (including Suppl ements, Vitamins, Herbs, OTC Drugs), Illicit/Recreational Drugs, Alcohol true pnv, reglan If Yes, Agent(s) And Strength/Dosage false Any Other Genetic History false Live With Someone With TB Or Exposed To TB false Patient Or Partner Has History Of Genital Herpes false Rash Or Viral Illness Since Last Menstrual Perio d false History Of STD, Gonorrhea, Chlamydia, HPV, Syphi lis false Other Infection History false History of HIV false History of Hepatitis false Prior GBS-infected child false Hemoglobinopathy Or Carrier false Other Structural Defect false Recent Travel History Outside of Country false Delivery Information Delivery Date Delivery Type Labor Anesthesia Weeks Gestation Incision Type Labor Labor Length Hrs Delivered By Post Complications Tubal Sterilization Discharge Date Comments 4 Induce d Regional-Ep idural 39 false Pring Past history of postpartu m hemorrhag e,Prophyl actic immunothe rapy; precip labor Discharge Information Feeding Method Contraceptive Method Maternal HG B and HCT Levels
[2024-12-15 11:39] LABS: Hematocrit 35.5 % (37.0-47.0); Hemoglobin 11.9 g/dL (12.0-15.0); Immature Granulocyte Percent A 3.1 % (0-0.5); Lymphocytes Absolute Auto 0.74 K/mm3 (0.9-3.2); Mean Corpuscular HGB Conc 33.5 g/dl (32-36); Mean Corpuscular Hemoglobin 27.1 pg (26-34); Mean Corpuscular Volume 80.9 fl (80-100); Nucleated Red Blood Cells Absolute Auto 0.000 K/mm3 (0.0-0.012); Nucleated Red Blood Cells Perc 0.0 % (0.0-0.2); Platelet Count Result 125 k/mm3 (150-375); Red Blood Count 4.39 M/mm3 (4.2-5.4); White Blood Count 6.9 K/mm3 (4.5-10.0)
[2024-12-15] MEDS: LACTATED RINGERS 1,000 ML 125 ML IV CONT ×2 (11:55→13:12)
--- NOTE | 2024-12-15 12:21 | WPDANESEPPF ---
Anes - Initial Pre Proc Eval Procedure: labor epidural Date/Time: 12/15/24 12:21 Surgeon: Ratna Hernandez CNM Pre Op Diagnosis: labor pain Pre Op Diagnosis: Labor Patient Data Age: 29 Gender: F Height: Weight: Last Vital Signs Pulse 97 12/15/24 12:01 BP 127/71 12/15/24 12:01 Allergies Allergy/AdvReac Type Severity Reaction Status Date / Time No Known Allergies Allergy Verified 11/21/21 21:18 Home Medications ?Medication ?Instructions ?Recorded ?Confirmed ?Type vit no.95-ferrous 1 tablet PO DAILY 10/03/21 10/27/23 History fumarate 28 mg-folic acid 800 mcg tablet () Laboratory Tests 12/15/24 11:32 WBC 6.9 K/mm3 (4.5-10.0) RBC 4.39 M/mm3 (4.2-5.4) Hgb 11.9 L g/dL (12.0-15.0) Hct 35.5 L % (37.0-47.0) MCV 80.9 fl (80-100) MCH 27.1 pg (26-34) MCHC 33.5 g/dl (32-36) RDW 15.2 H % (11.5-14.5) Plt Count 125 L k/mm3 (150-375) MPV 9.9 fl (7.4-10.4) Immature Gran % (Auto) 3.1 H % (0-0.5) Neut % (Auto) 79.9 H % (45.5-73.1) Lymph % (Auto) 10.8 L % (18.3-44.2) [place] % (Auto) 5.8 % (2.6-8.5) Eos % (Auto) 0.0 % (0-4.4) Baso % (Auto) 0.4 % (0.2-1.2) Lymph # (Auto) 0.74 L K/mm3 (0.9-3.2) [place] # (Auto) 0.4 K/mm3 (0.1-0.6) Eos # (Auto) 0.0 K/mm3 (0-0.3) Baso # (Auto) 0.0 K/mm3 (0.0-0.1) Abs Immat Gran (auto) 0.21 H K/mm3 (0.00-0.031) Absolute Neuts (auto) 5.5 K/mm3 (1.3-6.7) Absolute Nucleated RBC 0.000 K/mm3 (0.0-0.012) Nucleated RBC % 0.0 % (0.0-0.2) Patient hx anesthesia problems: none Family hx anesthesia problems: none Results Review: All pre-operative results and documents have been reviewed as part of the pre-operative evaluation. [facility] Past Medical History Medical History IUP (intrauterine ), incidental Surgical History Surgical History History of hand surgery tendon repair Family History Family History Father Hypertension Grandparent Cancer Social History Social History Smoking status: Never smoker Tobacco type: cigarettes Second hand tobacco smoke exposure: No Alcohol intake: current Substance use: never Do You Feel Safe in your Home?: Yes Lack of Transportation: No Lack of Food: Never True Current Housing: I Have Housing Concerned About Future Housing: No Difficulty Paying Gas/Electric Bills: No Difficulty Paying for Meds: No Currently Unemployed: No Education: High School Diploma/GED Difficulty w/ Childcare or Family Care: No Spiritual care concerns: No Anes - Eval Final PreProcedure Day of Procedure 12/15/24 12:21 Heart: regular rate and rhythm Lungs: clear to auscultation and normal air movement Airway: Mallampati scale class II Neurological: alert and oriented ASA classification: II Emergent: no Anesthetic plan: proceed Anesthesia type and monitoring: regional epidural and standard monitoring Results Review: All pre-operative results and documents have been reviewed as part of the pre-operative evaluation. Informed Consent: The patient's anesthetic plan and its attendant risks and benefits were discussed with the patient/family/POA. Questions were solicited and answers provided to the satisfaction of the patient/family/POA.
[2024-12-15 12:31] LABS: Syphilis IgG/IgM Antibody Non-Reactive (Nonreactive)
--- NOTE | 2024-12-15 12:31 | LDADM ---
This patient, Marianela Pierson, was admitted to Labor/Delivery/Recovery 107 on 12/15/24 at 10:46. Plans for labor, pain management and were discussed with patient. Patient/family oriented to hospital policies and general routines including ID bracelet, bed and alarms, visiting hours, pain management, procedures, bathroom and other care routines, personal items, smoking policy, room service/diet and guest tray routines, security routines, and visiting hours. Patient/Family are encouraged to report perceived risks to care and to ask questions if they do not understand what they are told or what they should do. See OBIX for further documentation.
--- NOTE | 2024-12-15 12:47 | WPDOBADMIT ---
Obstetrics - Admit Note Admission Note: record reviewed. No pertinent additions to the history and/or any subsequent changes in the physical findings that are not consistent with the expected course of the were found. Additions to the history and/or subsequent changes in the physical findings follow. admit in labor, anticipate vaginal delivery
--- NOTE | 2024-12-15 13:45 | PM.OBPNLAB ---
Pain Control Date/time seen: 12/15/24 13:45 Comments: FHR category 1 contractions every 3 minutes SVE /-2 AROM small amount of clear, odorless fluid, anticipate vaginal delivery
[2024-12-15 14:04] LABS: OBXCEM ROM Plus Negative (Negative)
[2024-12-15] MEDS: OXYTOCIN 30 UNITS/NS 500 ML 30 UNITS/500 ML BAG IV CONT (14:58)
--- NOTE | 2024-12-15 15:36 | PM.OBPRVD ---
OB - Vaginal Delivery Note Procedure Delivery date: 12/15/24 Delivery augmentation: Rupture of Membranes Delivery monitor: External FHT and External Uterine Route of delivery: Episiotomy description: None Laceration Description: None Specimen: No Quantitative Blood Loss (ml): 200 Anesthesia type: Epidural Disposition: Floor Complications: No immediate complications [place] Baby Date of : 12/15/24 Time of : 15:26 Gestational Age by Date: 38 Infant gender: Male Weight (pounds): 8 Weight (ounces): 1 presentation: vertex position: Left Occiput Anterior Placenta delivery description: Spontaneous Cord Vessel Description: 3 Vessels, Nuchal Cord, Loose (x1) and Delayed Cord Clamping score one minute: 8 score five minutes: 9
[2024-12-15] MEDS: OXYTOCIN 30 UNITS/NS 500 ML 30 UNITS/500 ML BAG 125 UNITS IV CONT (16:02)
[2024-12-15 17:56] LABS: Platelet Count Result 118 k/mm3 (150-375)
[2024-12-15] MEDS: LANOLIN (LANSINOH) 7.5 GM CREAM 1 APPLIC TOPICAL (19:10)
[2024-12-15] MEDS: IBUPROFEN 600 MG TABLET PO (19:24)
[2024-12-15] MEDS: ACETAMINOPHEN 325 MG TABLET 650 MG PO (19:24)
--- NOTE | 2024-12-15 19:33 | PC.NURSE ---
12/15/2024 at 1818 patient transferred to room 111.
--- NOTE | 2024-12-15 19:35 | PC.NURSE ---
12/15/2024 Patient oriented to room and plan care for mother. Baby is in Level 2 nursery,
[2024-12-15] MEDS: RHO(D) IMMUNE GLOBULIN 300 MCG/2 ML SYRINGE IM (22:48)
--- NOTE | 2024-12-18 11:58 | P.DS_ITS ---
DS: Admitting Diagnosis Discharge Date 12/15/24 Admitting Diagnosis labor OB - DS: Summary OB Procedures : None OB Procedures Intrapartum: Spontaneous Vag Delivery OB Procedures: : None Peripartum Data Laceration Description: None Episiotomy description: None Time Spent with Patient Time attestation: Total time spent providing and/or coordinating discharge services: Discharge Plan Discharge Consulting providers: Ratna Hernandez; Hazel Roberts Discharging Clinician: Ratna Hernandez Patient Disposition: Home Activity: as tolerated Diet: as tolerated Discharge Instructions: Education: Mom and Baby Guide Given to: Follow-Up: Call your delivering provider's office for an appointment to be seen in: Mom and baby should come to the [place] [facility] for the follow-up appointment. Appointment Date/Time: at What to expect at your follow-up visit: Call [phone] if you are unable to keep your appointment time. BREAST CARE: * Wear a snug supportive bra. * For engorgement discomfort: Breast Feeding: * Apply warm moist washcloths * Express milk as needed to relieve engorgement * Wear loose clothing Bottle Feeding: * May apply ice packs * For sore nipples: * Identify correct latch-on * Apply warm moist washcloths before and after nursing * Air dry nipples after nursing * May apply Lansinoh cream to nipples EPISIOTOMY/PERINEAL CARE: * Until bleeding stops, use your lilian bottle after urinating * Change your pad frequently throughout the day * You may take sitz baths several times a day (fill your bathtub with warm water and soak for 20 minutes.) Do NOT bathe in the water * No tub baths until seen by your physician - You may shower ACTIVITY: * Rest as much as possible. * Do not exercise or lift anything heavier than your baby (such as laundry or other children.) * Avoid stairs or driving as much as possible. * Do not put anything into the vagina. No douching, tampons, or sexual activity until seen by physician. NOTIFY PHYSICIAN IF YOU HAVE ANY QUESTIONS OR IF ANY OF THE FOLLOWING SYMPTOMS OCCUR: * If your episiotomy or incision becomes red, swollen, or more painful than what you have experienced in the hospital. * If your vaginal bleeding becomes foul smelling. * If your vaginal bleeding becomes more heavy than a period or if your bleeding changes from pink to bright red. However, you may pass an occasional walnut- sized clot once or twice for the first week . * If you experience a sharp, shooting pain in you calves. * If you discover a hard, reddened area on your breast or if you experience flu- like symptoms. DIET: * Eat regular, well-balanced meals. * Drink plenty of fluids daily. If , drink to thirst. Patient Language: Libyan Stand Alone Forms: General Discharge Information Follow-up/Referrals: Ratna Hernandez CNM [Certified Nurse Plate Roller, CERTIFIED PROFESSIONAL MIDWIFE] Discharge Medications: Continued PNV no.95-ferrous fumarate-FA [] 28 mg iron- 800 mcg Tablet 1 tablet PO DAILY ferrous sulfate [Slow Release Iron] 142 mg (45 mg iron) tablet extended release 142 mg PO BID Date of admission: 12/15/24 10:46 Primary Care Provider: PHYSICIAN,PAD MACHINE FEEDER Admitting Provider: Fran Ross Attending physician on admission: Fran Ross Condition: Stable
--- NOTE | 2024-12-19 08:31 | P.DS_ITS ---
DS: Admitting Diagnosis Discharge Date 12/15/24 Admitting Diagnosis labor OB - DS: Summary OB Procedures : None OB Procedures Intrapartum: Spontaneous Vag Delivery OB Procedures: : None Peripartum Data Laceration Description: None Episiotomy description: None Time Spent with Patient Time attestation: Total time spent providing and/or coordinating discharge services: Discharge Plan Discharge Consulting providers: Ratna Hernandez; Hazel Roberts Discharging Clinician: Ratna Hernandez Patient Disposition: Home Activity: as tolerated Diet: as tolerated Discharge Instructions: Education: Mom and Baby Guide Given to: Follow-Up: Call your delivering provider's office for an appointment to be seen in: Mom and baby should come to the [place] [facility] for the follow-up appointment. Appointment Date/Time: at What to expect at your follow-up visit: Call [phone] if you are unable to keep your appointment time. BREAST CARE: * Wear a snug supportive bra. * For engorgement discomfort: Breast Feeding: * Apply warm moist washcloths * Express milk as needed to relieve engorgement * Wear loose clothing Bottle Feeding: * May apply ice packs * For sore nipples: * Identify correct latch-on * Apply warm moist washcloths before and after nursing * Air dry nipples after nursing * May apply Lansinoh cream to nipples EPISIOTOMY/PERINEAL CARE: * Until bleeding stops, use your lilian bottle after urinating * Change your pad frequently throughout the day * You may take sitz baths several times a day (fill your bathtub with warm water and soak for 20 minutes.) Do NOT bathe in the water * No tub baths until seen by your physician - You may shower ACTIVITY: * Rest as much as possible. * Do not exercise or lift anything heavier than your baby (such as laundry or other children.) * Avoid stairs or driving as much as possible. * Do not put anything into the vagina. No douching, tampons, or sexual activity until seen by physician. NOTIFY PHYSICIAN IF YOU HAVE ANY QUESTIONS OR IF ANY OF THE FOLLOWING SYMPTOMS OCCUR: * If your episiotomy or incision becomes red, swollen, or more painful than what you have experienced in the hospital. * If your vaginal bleeding becomes foul smelling. * If your vaginal bleeding becomes more heavy than a period or if your bleeding changes from pink to bright red. However, you may pass an occasional walnut- sized clot once or twice for the first week . * If you experience a sharp, shooting pain in you calves. * If you discover a hard, reddened area on your breast or if you experience flu- like symptoms. DIET: * Eat regular, well-balanced meals. * Drink plenty of fluids daily. If , drink to thirst. Patient Language: Mexican Stand Alone Forms: General Discharge Information Follow-up/Referrals: Ratna Hernandez CNM [Certified Nurse Index Editor, FOAM RUBBER MOLDER] Discharge Medications: Continued PNV no.95-ferrous fumarate-FA [] 28 mg iron- 800 mcg Tablet 1 tablet PO DAILY ferrous sulfate [Slow Release Iron] 142 mg (45 mg iron) tablet extended release 142 mg PO BID Date of admission: 12/15/24 10:46 Primary Care Provider: PHYSICIAN,ANIMAL PHYSIOLOGY TEACHER Admitting Provider: Fran Ross Attending physician on admission: Fran Ross Condition: Stable
== END 2024-12-15 23:02 | disposition home or self-care (01) | DRG 807 ==
LOC: ANHLDR 11:52 → ANHOBPP 19:39 → ANHLDR 12-18 09:18 → ANHOBPP 12-18 09:18
PROVIDERS: Nurse Anesthetist, Certified Registered; Admitting Provider Obstetrics & Gynecology; Visit Provider Obstetrics & Gynecology
DX: O69.81X0 Labor and delivery complicated by cord around neck, without compression, not applicable or unspecified (principal); Z37.0 Single live birth; Z3A.38 38 weeks gestation of pregnancy
CPT/HCPCS: 36415; 84112; 85025; 85049; 85461; 86593; 86850; 86880; 86900; 86901; 90384; A9270; J2590; J2790; J2795; J7120